=== PATIENT | male | born 1960 | race Caucasian/White ===

== ENCOUNTER → 2018-08-22 | Outpatient (CLI) | payer BC, OTHER | END | disposition home or self-care (01) | LOC: LABPAT 12:23 | PROVIDERS: ATTEND Orthopaedic Surgery | DX: Z01.812 Encounter for preprocedural laboratory examination (principal) | CPT/HCPCS: 87070 ==

== ENCOUNTER 2018-09-08 08:26 | Inpatient (IN) | payer BC ==
--- NOTE | 2018-09-07 16:59 | HP ---
HISTORY AND PHYSICAL Surgery is 09/08/2018. El Coleman is a 57-year-old patient seen with symptomatic left knee osteoarthritis. After having treatment options discussed, he elected to proceed left total knee arthroplasty. Consent regarding the procedure was obtained. Medical clearance was provided by Dr. Nba Vernon. PAST MEDICAL HISTORY: Yys-kobfmvq-xdqoqlskv diabetes, hypertension. PAST SURGICAL HISTORY: Knee arthroscopy. DAILY MEDICATIONS: Amlodipine, glucosamine, tramadol. ALLERGIES: MOTRIN AND DILAUDID. SOCIAL HISTORY: Denies tobacco use. PHYSICAL EXAMINATION: Physical evaluation of the left knee: His range of motion is -3/4 to 115 degrees. There is mild effusion. Tenderness medial joint line. Positive medial Shankar's. Crepitus medial patellofemoral compartments with range of motion. Ligaments stable. Hip rotation without pain. Distal neurovascular exam intact. RADIOGRAPHS: Radiographs of the left knee revealed moderate to severe medial compartment osteoarthritis and moderate patellofemoral compartment osteoarthritis. IMPRESSION: 1. Left knee osteoarthritis. 2. Hypertension. 3. Yib-nppzaio-fqkklylqw diabetes. 4. History of deep venous thrombosis. PLAN: Left total knee arthroplasty. MMODL / IJN: [id number] /
[~2018-09-08 08:26] MED LIST: ACETAMINOPHEN TAB 500 MG TAB PO ONE; DEXAMETHASONE SOD PHOSPHATE 10 MG/ML 1 ML VIAL IV ONE; LIDOCAINE 1% 20 ML VIAL (10MG/ML) FOR IV START INTRADERMA PRN; MELOXICAM 7.5 MG TAB PO ONE; MIDAZOLAM (PF) 2 MG/2 ML VIAL IV PRN; ONDANSETRON 4 MG/2 ML VIAL IVP ONE; TRANEXAMIC ACID 1,000 MG in SODIUM CHLORIDE 0.9% 100 ML IVPB ONE; ceFAZolin IN SWFI 2 GM/20 ML SYRINGE IVP ONE
[2018-09-08 09:10] LABS: Glucose,Whole Blood 151 mg/dL (75-99)
[2018-09-08] MEDS ORDERED: MIDAZOLAM 2 MG/2 ML VIAL IV ONE (09:15)
[2018-09-08] MEDS: LACTATED RINGERS 1,000 ML IV SCH ×4 (09:29→22:34)
[2018-09-08] MEDS ORDERED: ROPIVACAINE 1,100 MG, SODIUM CHLORIDE 0.9% 500 ML 330 ML MISCELLANE PRN ×2 (09:56)
[2018-09-08] MEDS ORDERED: ROPIVACAINE 246.25 MG, EPINEPHrine 0.5 MG, KETOROLAC 30 MG, cloNIDine HCL/PF 80 MCG, WA... MISCELLANE ONE ×5 (09:57)
--- NOTE | 2018-09-08 09:58 | P.ONQ ---
Anesthesiology Proc Note - PNB - Peripheral Nerve Block Performed Left Adductor Canal Infusion Time Out Performed: Yes Procedure Start Time: : Procedure Stop Time: : Indication: Acute Post-Operative Pain, Requested by physician Sedation Type: Sedate with meaningful contact maintained Preparation: Sterile Dressing Position: Supine Catheter: Indwelling Needle Types: On-Q Needle Size: 100mm (4") Needle Gauge: 21 Technique: Ultrasound Injectate: 0.5% Ropivacaine (see comment for volume) (ropi .5% 20cc) Blood Aspirated: No Pain Paresthesia on Injection Noted: No Resistance on Injection: Normal Events: Uneventful and Well Tolerated
[2018-09-08] MEDS ORDERED: ceFAZolin 3,000 MG in SODIUM CHLORIDE 0.9% IRRIGATIO 3,000 ML IRRIGATION ONE (10:18)
[2018-09-08] MEDS ORDERED: LACTATED RINGERS 1,000 ML IV ONE ×2 (11:10→13:05)
[2018-09-08] MEDS ORDERED: NALOXONE 0.4 MG/ML 1 ML VIAL IV PRN (11:56)
[2018-09-08] MEDS ORDERED: HYDROmorphone 0.5 MG/0.5 ML SYRINGE IVP PRN (11:56)
[2018-09-08] MEDS ORDERED: HYDROcodone/APAP 5-325MG 1 EACH TAB PO PRN (11:56)
[2018-09-08] MEDS ORDERED: traMADol 50 MG TAB PO PRN (11:56)
--- NOTE | 2018-09-08 11:56 | P.OP ---
Date of Procedure: 09/08/18 Preoperative Diagnosis: Left knee osteoarthritis Postoperative Diagnosis: Left knee osteoarthritis Procedure(s) Performed: Left total knee arthroplasty Implants: 1. Microport evolution size 6 cemented femur 2. Microport evolution size 6 cemented tibial baseplate 3. Microport evolution size 6 MP/CS 12 mm polyethylene tibial insert 4. Microport advanced 38 mm all polyethylene cemented patella Anesthesia: GETA, regional (Adductor canal catheter), local Surgeon: Geoffrey Pineda Doctor Of Veterinary Medicine #1: Asael Brush Estimated Blood Loss (ml): 50 Pathology: other (Bone) Condition: stable Disposition: PACU Indications for Procedure: 57-year-old patient seen with setback left knee osteoarthritis. After treatment options were discussed, he elected to proceed with total knee arthroplasty Operative Findings: See description of procedure Description of Procedure: Patient was taken to the operative suite after having an adductor canal catheter placed by the department of anesthesia. Patient underwent a general anesthetic by the department of anesthesia. Patient was given preoperative IV intake antibiotics and TXA. A well-padded tourniquet was placed about the left lower extremity. The lower extremity was then prepped and draped in the normal sterile orthopedic fashion. The extremity was elevated, a tourniquet was insufflated to 300. A standard anterior incision was made sharply through skin. Dissection was taken down through the subcutaneous soft tissues down to the extensor mechanism. A medial arthrotomy was performed, patella was everted and knee was flexed. There was advanced osteoarthritis noted. I introduced my distal intramedullary femoral drill. I then introduced the distal femoral cutting jig. Hardeep QUINTANA secured the cutting jig with 2 pins. I held retractors in position while Hardeep QUINTANA performed the distal femoral resection through the guide area we now removed her distal femoral cutting guide. We now placed our 4-in-1 femoral cutting block and positioned and it was secured with 2 pins by Hardeep QUINTANA while I held the block in position. The distal femoral finishing was now completed. A proximal tibial cutting guide was positioned. I held the guide in the appropriate position with both hands well Hardeep QUINTANA inserted stabilizing pins into the guide. Proximal tibial cut was made. We now placed a trial femoral component into position, along with an appropriate size tibial tray and insert. We now took the knee through range of motion and had full extension good flexion and good overall soft tissue balance noted. The patella was everted and stabilized with 2 towel clips held by Hardeep QUINTANA while I performed a flush with patellar quad tendon utilizing a fresh sawblade. We templated the patella, appropriate drill holes were made. An appropriate trial patella was positioned, knee was taken through full range of motion with the patella tracking very nicely. The trial patella was removed. Drill holes were made through the femoral component. All trial components were removed after marking off the appropriate rotation of the tibia. Retractors were now positioned along the proximal tibia. An appropriate keel punch was made with the appropriate size tibial guide by myself on Hardeep QUINTANA assisted by holding retractors. At this point appropriate size implants were chosen and opened. The joint was irrigated copiously with pulse lavage mechanical irrigation. The posterior capsule was infiltrated with local analgesic. The wound was irrigated with pulse lavage mechanical irrigation. We mixed antibiotic methylmethacrylate. We placed the knee into flexion. We placed multiple retractors assisted by Hardeep QUINTANA to expose the proximal tibia. Once the methyl methacrylate was ready, the tibial component was cemented into place removing any excess methylmethacrylate form by both myself and Hardeep QUINTANA. The femoral component was cemented into place removing the removing any excess methylmethacrylate performed by both myself and Hardeep QUINTANA. We then inserted the appropriate size polyethylene tibial insert. We made sure that it was locked into position. We took the knee into full extension, and then back in a flexion making sure we had removed any excess methylmethacrylate. The patellar component was then cemented down and secured with clamp. Excess methylmethacrylate removed. We kept the knee in full extension, patellar clamp in position until methylmethacrylate had hardened. Once it had hardened the patellar clamp was removed. The knee was taken through full range of motion. The patella tracked nicely. There was good soft tissue balancing. The tourniquet was now released. Additional hemostasis was achieved via electrocautery. A second gram of TXA was given. The wound again was irrigated with pulse lavage mechanical irrigation. The superficial soft tissues were infiltrated local analgesic. The extensor mechanism was repaired with Vicryl. We checked the repair with range of motion and it was stable. The subcutaneous soft tissues were repaired with Vicryl in layers. The skin was approximated with pernio/Dermabond. Sterile dressings were applied followed by loose web roll and Santy bandage. The patient was transferred to a bed, and taken to recovery in stable and satisfactory condition. Hardeep QUINTANA assisted with this complex procedure.
[2018-09-08] MEDS: fentaNYL (PF) 50 MCG/ML 2 ML AMP IV PRN ×2 (12:53→14:17)
[2018-09-08] MEDS ORDERED: diphenhydrAMINE 50 MG/ML 1 ML VIAL IVP ONE ×2 (12:58→16:55)
--- NOTE | 2018-09-08 13:03 | XR ---
EXAMINATION TYPE: XR knee limited LT DATE OF EXAM: 09/08/2018 COMPARISON: NONE HISTORY: 57-year-old male evaluation for postoperative abnormality and alignment TECHNIQUE: 2 views FINDINGS: Images show placement of left total knee arthroplasty. 2 distal femoral and proximal tibial component s of the prosthesis are well seated without periprosthetic fracture. Alignment grossly anatomic. Ante rior soft tissue swelling with soft tissue air as well as intra-articular air and joint fluid compati ble with recent operation. IMPRESSION: Uncomplicated postoperative appearance left total knee arthroplasty.
[2018-09-08 13:05] LABS: Glucose,Whole Blood 191 mg/dL (75-99)
[2018-09-08] MEDS: HYDROmorphone 1 MG/ML 1 ML SYRINGE IVP ONE ×3 (15:04→16:06)
[2018-09-08] MEDS ORDERED: ONDANSETRON 4 MG/2 ML VIAL IVP ONE (15:13)
[2018-09-08] MEDS ORDERED: HYDROmorphone 1 MG/ML 1 ML SYRINGE IVP ONE (16:24)
[2018-09-08 18:21] VITALS: BMI 34.9
[2018-09-08] MEDS: HYDROcodone/APAP 5-325MG 1 EACH TAB PO PRN (18:26)
[2018-09-08] MEDS: ceFAZolin IN SWFI 2 GM/20 ML SYRINGE IVP SCH (18:26)
[2018-09-08 19:56] LABS: Glucose,Whole Blood 225 mg/dL (75-99)
[2018-09-08] MEDS ORDERED: INSULIN ASPART (NovoLOG) 100 UNIT/ML VIAL SQ ONE (22:02)
[2018-09-08] MEDS: SENNOSIDES-DOCUSATE SODIUM 1 EACH TAB PO SCH (22:14)
[2018-09-08] MEDS: HYDROmorphone 0.5 MG/0.5 ML SYRINGE IVP PRN (22:14)
[2018-09-09] MEDS: ceFAZolin IN SWFI 2 GM/20 ML SYRINGE IVP SCH (00:08)
[2018-09-09] MEDS: HYDROcodone/APAP 5-325MG 1 EACH TAB PO PRN ×2 (02:29→07:55)
[2018-09-09] MEDS: HYDROmorphone 0.5 MG/0.5 ML SYRINGE IVP PRN (04:54)
[2018-09-09] MEDS: ENOXAPARIN 30 MG/0.3 ML SYRINGE SQ SCH ×2 (05:29→17:12)
[2018-09-09 06:57] LABS: Glucose,Whole Blood 199 mg/dL (75-99)
--- NOTE | 2018-09-09 07:24 | CONS ---
CONSULTATION REASON FOR CONSULTATION: Advice regarding diabetes and other medical issues requested by Dr. Pineda. HISTORY OF PRESENT ILLNESS: This is a 57-year-old gentleman with a past medical history of hypertension, diabetes, DJD, history of pneumonia, being followed by Dr. Colt Crum in the outpatient setting underwent left total knee joint arthroplasty by Dr. Pineda. There is no history of any chest pain. No history of palpitations. No history of headache, loss of consciousness, nausea, vomiting, diarrhea, fevers or rigors. The patient is complaining of some left knee pain. PAST MEDICAL HISTORY: Diabetes mellitus type 2, hypertension, hyperlipidemia, DJD, history pneumonia, history of pulmonary embolism. MEDICATIONS: Home medications: 1. Ultram 100 mg q.6 p.r.n. 2. Metformin 1000 mg p.o. b.i.d. 3. Glyburide 5 mg b.i.d. 4. Norvasc 10 mg daily. 5. Zocor 40 mg daily. 6. Multivitamins one p.o. daily. 7. Invokana 100 mg daily. 8. Aspirin 81 mg daily. ALLERGIES: HYDROMORPHONE. FAMILY HISTORY: History of cancer, COPD. SOCIAL HISTORY: No history of smoking. No of alcohol intake. REVIEW OF SYSTEMS: ENT: No diminished hearing or diminished vision. CARDIOVASCULAR SYSTEM: No angina or palpitations. RESPIRATORY SYSTEM: As mentioned earlier. GI: No nausea. : No dysuria. NERVOUS SYSTEM: No numbness or weakness. MUSCULOSKELETAL: As mentioned earlier. HEMATOLOGY: No history of anemia. ENDOCRINE: Diabetes mellitus. CONSTITUTIONAL: As mentioned earlier. DERMATOLOGY: Negative. RHEUMATOLOGY: Negative. PSYCHIATRY: As mentioned earlier. PHYSICAL EXAMINATION: The patient is alert and oriented x3. Pulse 94, blood pressure 127/69, respiration 16, temperature 97.6, pulse ox 96% on room air. HEENT: Conjunctivae normal. Oral mucosa moist. Neck is no jugular venous distention. No carotid bruit. No lymph node enlargement. CARDIOVASCULAR: S1, S2 muffled. No S3, no S4. RESPIRATORY: Breath sounds diminished at the bases. A few rhonchi. No crackles. ABDOMEN: Soft, nontender. No mass palpable. LEGS: Status post knee arthroplasty. NERVOUS SYSTEM: Higher functions as mentioned earlier. Moves all 4 limbs. No focal motor deficits. LYMPHATICS: No lymphadenopathy of the neck, axillae or groin. SKIN: No ulcer, rash or bleeding. JOINTS: No active deforming arthropathy. LABS: Accu-Cheks 151, 191, 225. ASSESSMENT: 1. Status post left total knee joint arthroplasty. 2. Diabetes mellitus type 2. 3. Hypertension. 4. Hyperlipidemia. 5. Degenerative joint disease. 6. History of pneumonia. 7. History of pulmonary embolism. 8. History of degenerative joint disease. RECOMMENDATIONS AND DISCUSSION: In this 57-year-old gentleman who presented with multiple medical issues at this time I recommend to continue current medications, continues with monitoring and symptomatic treatment. As this time I recommend DVT prophylaxis. Resume the home medications. The patient is on Lovenox 30 mg subcu b.i.d. I would also recommend extended prophylaxis as well. Monitor blood sugars closely. Resume the home medications. Incentive spirometry. Follow the patient closely. The patient may be asked to follow up with primary physician closely. Thank you, Dr. Pineda, for letting us participate in the care of this patient. MMODL / IJN: [id number] /
[2018-09-09] MEDS: amLODIPine 10 MG TAB PO SCH (07:55)
[2018-09-09] MEDS: MULTIVITAMINS, THERA 1 EACH TAB PO SCH (07:55)
[2018-09-09] MEDS: MELOXICAM 7.5 MG TAB PO SCH (07:55)
[2018-09-09] MEDS: glipiZIDE 10 MG TAB PO SCH ×2 (07:55→17:12)
[2018-09-09] MEDS: ATORVASTATIN 20 MG TAB PO SCH (07:55)
[2018-09-09] MEDS: metFORMIN 500 MG TAB PO SCH ×2 (07:55→17:12)
[2018-09-09] MEDS: INSULIN ASPART (NovoLOG) 100 UNIT/ML VIAL SQ SCH ×4 (07:56→22:14)
[2018-09-09] MEDS: LACTATED RINGERS 1,000 ML IV SCH ×3 (08:01→18:07)
[2018-09-09 08:11] LABS: Basophils % (A) 0 %; Eosinophils # (A) 0.1 k/uL (0-0.7); Eosinophils % (A) 1 %; HCT 41.7 % (39.0-53.0); HGB 13.8 gm/dL (13.0-17.5); Lymphocytes # (A) 1.2 k/uL (1.0-4.8); Lymphocytes % (A) 11 %; MCH 29.9 pg (25.0-35.0); MCHC 33.1 g/dL (31.0-37.0); MCV 90.5 fL (80.0-100.0); Mean Platelet Volume 6.1; Monocytes # (A) 0.7 k/uL (0-1.0); Monocytes % (A) 6 %; Neutrophils # (A) 8.9 k/uL (1.3-7.7); Neutrophils % (A) 81 %; Platelet Count 273 k/uL (150-450)
[2018-09-09] MEDS: Canagliflozin [Invokana] 100 MG PO SCH (09:38)
[2018-09-09] MEDS: HYDROmorphone 1 MG/ML 1 ML SYRINGE IVP PRN ×3 (10:10→21:10)
--- NOTE | 2018-09-09 10:54 | P.PN ---
Progress Note - Text Progress Note Date: 09/09/18 The patient is status post[ left] adductor canal catheter placement. The catheter was placed for postoperative pain control, status post total left knee arthroplasty. Ropivacaine 0.2% is infusing at 5 mLs per hour. The patient has no complaints of left lower extremity numbness or weakness. Patient's VAS score is 4 -10. Assessment: Patient's adductor canal catheter is in place and working appropriately. Plan: continue infusion and adjust it as needed.
[2018-09-09 12:12] LABS: Glucose,Whole Blood 117 mg/dL (75-99)
[2018-09-09] MEDS: DIAZEPAM 5 MG TAB PO PRN ×2 (12:15→22:08)
[2018-09-09] MEDS: HYDROcodone/APAP 7.5-325MG 1 EACH TAB PO PRN (13:07)
--- NOTE | 2018-09-09 13:18 | P.PN ---
Subjective Progress Note Date: 09/09/18 Principal diagnosis: Status post left total knee arthroplasty Patient evaluated at bedside, his family present with him. Patient notes severe pain involving the left knee. I did increase his oral pain medication recently, I also added Valium. We will reassess later today. Denies any chest pain or shortness of breath. Objective - Vital Signs Vital signs: Vital Signs Temp 98.3 F 09/09/18 07:39 Pulse 90 09/09/18 07:39 Resp 16 09/09/18 07:39 BP 164/81 09/09/18 07:39 Pulse Ox 94 L 09/09/18 07:39 Intake & Output 09/08/18 09/09/18 09/09/18 18:59 06:59 18:59 Intake Total 2000 1100 Output Total 50 500 Balance 1950 - 1100 Intake: IV 2000 Intake, IV Titration 800 Amount Lactated Ringers 1,000 ml 800 @ 100 mls/hr IV .Q10H JOSE Rx#:[id number] Other 300 Output: Urine 500 Estimated Blood Loss 50 Other: # Voids 3 - Exam Left lower extremity: Incision is clean, dry, and intact. The exofin fusion tape is in good condition. There is minimal soft tissue swelling and ecchymosis surrounding the medial and lateral aspects of the incision. Calf is soft, no tenderness with palpation. Plantar flexion, dorsiflexion, EHL, FHL are intact. Sensory exam to light touch throughout the extremity is intact, dorsal pedis pulses 2+. - Labs CBC & Chem 7: 09/09/18 07:13 Labs: Abnormal Lab Results - Last 24 Hours (Table) 09/08/18 09/09/18 09/09/18 Range/Units 19:55 06:55 07:13 WBC 11.0 H (3.8-10.6) k/uL Neutrophils # 8.9 H (1.3-7.7) k/uL POC Glucose (mg/dL) 225 H 199 H (75-99) mg/dL 09/09/18 Range/Units 12:10 WBC (3.8-10.6) k/uL Neutrophils # (1.3-7.7) k/uL POC Glucose (mg/dL) 117 H (75-99) mg/dL Assessment and Plan Plan: Assessment: Postop day 1 status post left total knee arthroplasty Plan: Pain control, did adjust oral medications GI and DVT prophylaxis, continue subcu medication. We'll discharge home on Eliquis 2.5mg Wound care instructions discussed Encourage incentive spirometer Encourage work with physical therapy and use of CPM Medical recommendations Discharge planning: Hopeful discharged home in the next day or 2 Time with Patient: Less than 30
[2018-09-09 13:45] LABS: Hemoglobin A1C 8.6 % (4.0-6.0)
[2018-09-09 17:06] LABS: Glucose,Whole Blood 146 mg/dL (75-99)
--- NOTE | 2018-09-09 18:12 | PN ---
PROGRESS NOTE DATE OF SERVICE: 09/09/2018 This 57-year-old gentleman who was admitted after right total knee arthroplasty is being closely monitored. No chest pain. No palpitations. No fever. On exam, alert and oriented x3. The pulse is 90, blood pressure 164/81, respirations 16, temperature 98.3, pulse ox 94% on room air. HEENT: Conjunctivae normal. NECK: No jugular venous distention. CARDIOVASCULAR SYSTEM: S1, S2 muffled. RESPIRATORY SYSTEM: Breath sounds diminished at the bases. No rhonchi. No crackles. ABDOMEN: Soft. LEGS: Status post surgery. NERVOUS SYSTEM: No focal deficit. LABS: WBC 11 and hemoglobin A1c is 8.6. Accu-Cheks are noted. ASSESSMENT: 1. Status post left total knee arthroplasty. 2. Diabetes mellitus, type 2. 3. Hypertension. 4. Hyperlipidemia. 5. Hemoglobin A1c is 8.6. 6. Degenerative joint disease. 7. History of pneumonia. 8. History of pulmonary embolism. 9. History of degenerative joint disease. RECOMMENDATIONS AND DISCUSSION: I recommend to continue current medications, continue with symptomatic treatment. I would also recommend UA with micro to complete the workup. Otherwise, I would recommend continuing with DVT prophylaxis to complete the home course. Further recommendations to follow. MMODL / IJN: [id number] /
[2018-09-09] MEDS ORDERED: ONDANSETRON 4 MG/2 ML VIAL IVP STA (18:17)
[2018-09-09 18:33] LABS: Appearance,Urine Clear (Clear); Bilirubin,Urine Negative (Negative); Blood,Urine Negative (Negative); Color,Urine Light Yellow; Glucose,Urine (UA) 4+ (Negative); Ketones,Urine 1+ (Negative); Leukocyte Esterase,Urine Negative (Negative); Nitrite,Urine Negative (Negative); Protein,Urine Trace (Negative); Specific Gravity,Urine 1.012 (1.001-1.035); Urobilinogen,Urine <2.0 mg/dL (<2.0)
[2018-09-09 19:58] LABS: Glucose,Whole Blood 141 mg/dL (75-99)
[2018-09-09] MEDS: SENNOSIDES-DOCUSATE SODIUM 1 EACH TAB PO SCH (22:08)
[2018-09-10] MEDS: HYDROcodone/APAP 7.5-325MG 1 EACH TAB PO PRN ×3 (01:01→22:52)
[2018-09-10] MEDS: HYDROmorphone 1 MG/ML 1 ML SYRINGE IVP PRN ×3 (03:39→10:41)
[2018-09-10] MEDS: LACTATED RINGERS 1,000 ML IV SCH ×3 (04:19→12:12)
[2018-09-10] MEDS: ENOXAPARIN 30 MG/0.3 ML SYRINGE SQ SCH ×2 (05:15→17:47)
[2018-09-10] MEDS: DIAZEPAM 5 MG TAB PO PRN ×3 (05:17→20:24)
[2018-09-10 07:02] LABS: Glucose,Whole Blood 101 mg/dL (75-99)
[2018-09-10] MEDS: INSULIN ASPART (NovoLOG) 100 UNIT/ML VIAL SQ SCH ×4 (07:06→22:52)
[2018-09-10] MEDS: glipiZIDE 10 MG TAB PO SCH ×2 (07:52→17:46)
[2018-09-10] MEDS: metFORMIN 500 MG TAB PO SCH ×2 (07:52→17:46)
[2018-09-10] MEDS: MULTIVITAMINS, THERA 1 EACH TAB PO SCH (09:42)
[2018-09-10] MEDS: MELOXICAM 7.5 MG TAB PO SCH (09:43)
[2018-09-10] MEDS: Canagliflozin [Invokana] 100 MG PO SCH (09:43)
[2018-09-10] MEDS: amLODIPine 10 MG TAB PO SCH (09:48)
[2018-09-10] MEDS: ATORVASTATIN 20 MG TAB PO SCH (09:48)
[2018-09-10 11:44] LABS: Glucose,Whole Blood 177 mg/dL (75-99)
--- NOTE | 2018-09-10 14:18 | P.PN ---
Subjective Progress Note Date: 09/10/18 Principal diagnosis: Status post left total knee arthroplasty Patient evaluated at bedside, his family present with him. Pain control slightly better than yesterday, I will add a muscle relaxant. Denies any chest pain or shortness of breath. Objective - Vital Signs Vital signs: Vital Signs Temp 98.1 F 09/09/18 23:00 Pulse 117 H 09/09/18 23:00 Resp 16 09/10/18 08:15 BP 162/91 09/09/18 23:00 Pulse Ox 94 L 09/09/18 23:00 Intake & Output 09/09/18 09/10/18 09/10/18 18:59 06:59 18:59 Intake Total 2558 560 Output Total 800 Balance 2558 -240 Intake: Intake, IV Titration 1600 Amount Lactated Ringers 1,000 ml 1600 @ 100 mls/hr IV .Q10H JOSE Rx#:[id number] Oral 458 560 Other 500 Output: Urine 800 Other: # Voids 3 - Exam Left lower extremity: Incision is clean, dry, and intact. The exofin fusion tape is in good condition. There is minimal soft tissue swelling and ecchymosis surrounding the medial and lateral aspects of the incision. Calf is soft, no tenderness with palpation. Plantar flexion, dorsiflexion, EHL, FHL are intact. Sensory exam to light touch throughout the extremity is intact, dorsal pedis pulses 2+. - Labs CBC & Chem 7: 09/09/18 07:13 Labs: Abnormal Lab Results - Last 24 Hours (Table) 09/09/18 09/09/18 09/09/18 Range/Units 17:05 18:15 19:56 POC Glucose (mg/dL) 146 H 141 H (75-99) mg/dL Urine Protein Trace H (Negative) Urine Glucose (UA) 4+ H (Negative) Urine Ketones 1+ H (Negative) 09/10/18 09/10/18 Range/Units 07:01 11:33 POC Glucose (mg/dL) 101 H 177 H (75-99) mg/dL Urine Protein (Negative) Urine Glucose (UA) (Negative) Urine Ketones (Negative) Assessment and Plan Plan: Assessment: Postop day #2 status post left total knee arthroplasty Plan: Pain control, continue current medication GI and DVT prophylaxis, continue subcu medication. We'll discharge home on Eliquis 2.5mg Wound care instructions discussed Encourage incentive spirometer Encourage work with physical therapy and use of CPM Medical recommendations Discharge planning: Hopeful discharged home tomorrow Time with Patient: Less than 30
[2018-09-10] MEDS: CYCLOBENZAPRINE 5 MG TAB PO PRN ×2 (14:45→22:52)
[2018-09-10] MEDS: HYDROcodone/APAP 5-325MG 1 EACH TAB PO PRN (17:46)
--- NOTE | 2018-09-10 18:07 | PN ---
PROGRESS NOTE DATE OF SERVICE: 09/10/2018 This 57-year-old gentleman who was admitted with left total knee arthroplasty is being closely monitored at this time. The patient is complaining of some pain. Muscle relaxant was ordered by Orthopedic Surgery. No chest pain. No palpitations. No fever. On exam, alert and oriented x3. Pulse is 125, blood pressure 151/90, respirations 16, temperature 97.7, pulse ox 93% on room air. HEENT: Conjunctivae normal. NECK: No jugular venous distention. CARDIOVASCULAR SYSTEM: S1, S2 muffled. RESPIRATORY SYSTEM: Breath sounds diminished at the bases. A few scattered rhonchi. No crackles. ABDOMEN: Soft. LEGS: Status post surgery. NERVOUS SYSTEM: No focal deficit. LABS: Accu-Cheks 141, 101, 177. ASSESSMENT: 1. Status post left total knee arthroplasty. 2. Diabetes mellitus, type 2. 3. Hypertension. 4. Hyperlipidemia. 5. Hemoglobin A1c 8.6. 6. Degenerative joint disease. 7. History of pneumonia. 8. History of pulmonary embolus. 9. History of degenerative joint disease. RECOMMENDATIONS AND DISCUSSION: I recommend to continue current medications, continue with symptomatic treatment. Monitor blood sugars closely; they appear to be fairly under control at this time. I would also recommend close followup in the outpatient setting. The patient is also on Lovenox. Recommend to continue with anti-thrombotic prophylaxis as an outpatient because the patient has a history of previous thromboembolic disease. Guarded prognosis. Further recommendations to follow. Closely follow with Orthopedic Surgery. MMODL / IJN: [id number] /
[2018-09-10 18:12] LABS: Glucose,Whole Blood 165 mg/dL (75-99)
[2018-09-10] MEDS: SENNOSIDES-DOCUSATE SODIUM 1 EACH TAB PO SCH (20:24)
[2018-09-10 22:25] LABS: Glucose,Whole Blood 146 mg/dL (75-99)
[2018-09-11] MEDS: HYDROcodone/APAP 7.5-325MG 1 EACH TAB PO PRN ×3 (04:44→17:10)
[2018-09-11] MEDS: ENOXAPARIN 30 MG/0.3 ML SYRINGE SQ SCH ×2 (05:47→17:09)
[2018-09-11 07:16] LABS: Glucose,Whole Blood 112 mg/dL (75-99)
[2018-09-11] MEDS: LACTATED RINGERS 1,000 ML IV SCH ×3 (07:22→07:36)
[2018-09-11] MEDS: INSULIN ASPART (NovoLOG) 100 UNIT/ML VIAL SQ SCH ×3 (07:23→17:17)
[2018-09-11] MEDS: MELOXICAM 7.5 MG TAB PO SCH (07:31)
[2018-09-11] MEDS: CYCLOBENZAPRINE 5 MG TAB PO PRN ×2 (07:31→15:01)
[2018-09-11] MEDS: amLODIPine 10 MG TAB PO SCH (07:31)
[2018-09-11] MEDS: ATORVASTATIN 20 MG TAB PO SCH (07:31)
[2018-09-11] MEDS: DIAZEPAM 5 MG TAB PO PRN ×2 (07:31→15:01)
[2018-09-11] MEDS: glipiZIDE 10 MG TAB PO SCH ×2 (07:31→17:10)
[2018-09-11] MEDS: MULTIVITAMINS, THERA 1 EACH TAB PO SCH (07:32)
[2018-09-11] MEDS: metFORMIN 500 MG TAB PO SCH ×2 (07:35→17:10)
[2018-09-11] MEDS: Canagliflozin [Invokana] 100 MG PO SCH (07:35)
[2018-09-11 07:48] LABS: Basophils % (A) 0 %; Eosinophils # (A) 0.1 k/uL (0-0.7); Eosinophils % (A) 1 %; HCT 40.9 % (39.0-53.0); HGB 13.2 gm/dL (13.0-17.5); Lymphocytes % (A) 11 %; MCH 29.4 pg (25.0-35.0); MCHC 32.4 g/dL (31.0-37.0); MCV 90.6 fL (80.0-100.0); Mean Platelet Volume 6.3; Monocytes # (A) 0.7 k/uL (0-1.0); Monocytes % (A) 7 %; Neutrophils # (A) 7.2 k/uL (1.3-7.7); Neutrophils % (A) 80 %; Platelet Count 261 k/uL (150-450); RBC 4.51 m/uL (4.30-5.90); WBC 9.1 k/uL (3.8-10.6)
[2018-09-11 11:42] LABS: Glucose,Whole Blood 86 mg/dL (75-99)
--- NOTE | 2018-09-11 13:15 | P.PN ---
Subjective Progress Note Date: 09/11/18 Principal diagnosis: Status post left total knee arthroplasty Patient evaluated at bedside, his family present with him. Pain control slightly better than yesterday. Denies any chest pain or shortness of breath. Objective - Vital Signs Vital signs: Vital Signs Temp 98.1 F 09/11/18 07:25 Pulse 104 H 09/11/18 07:25 Resp 12 09/11/18 07:25 BP 167/85 09/11/18 07:25 Pulse Ox 94 L 09/11/18 07:25 Intake & Output 09/10/18 09/11/18 09/11/18 18:59 06:59 18:59 Intake Total 850 350 480 Balance 850 350 480 Intake: Oral 850 350 480 Other: Voiding Method Toilet Toilet Urinal # Voids 2 - Exam Left lower extremity: Incision is clean, dry, and intact. The exofin fusion tape is in good condition. There is minimal soft tissue swelling and ecchymosis surrounding the medial and lateral aspects of the incision. Calf is soft, no tenderness with palpation. Plantar flexion, dorsiflexion, EHL, FHL are intact. Sensory exam to light touch throughout the extremity is intact, dorsal pedis pulses 2+. - Labs CBC & Chem 7: 09/11/18 06:57 Labs: Abnormal Lab Results - Last 24 Hours (Table) 09/10/18 09/10/18 09/11/18 Range/Units 18:11 22:24 07:13 POC Glucose (mg/dL) 165 H 146 H 112 H (75-99) mg/dL Assessment and Plan Plan: Assessment: Postop day #3 status post left total knee arthroplasty Plan: Pain control, continue current medication GI and DVT prophylaxis, continue subcu medication. We'll discharge home on Eliquis 2.5mg Wound care instructions discussed Encourage incentive spirometer Encourage work with physical therapy and use of CPM Medical recommendations Discharge planning: Discharged home today Time with Patient: Less than 30
--- NOTE | 2018-09-11 13:22 | P.DS ---
Providers Date of admission: 09/08/18 08:26 Expected date of discharge: 09/11/18 Attending physician: Geoffrey Pineda Consults: 09/08/18 11:56 Consult Physician Routine Consulting Provider: Colt Crum Consult Reason/Comments: Medical management Do you want consulting provider notified?: Yes Primary care physician: Colt Crum Hospital Course: Date of admission: 09/08/2018 Date of discharge: 09/11/2018 Admission diagnosis: Status post left total knee arthroplasty Discharge diagnosis: Same Attending physician: Dr. Pineda Surgical procedures: Left total knee arthroplasty Brief history: Patient is a 57-year-old male with a history of progressive primary left knee osteoarthritis. At this point patient has failed conservative treatment measures and has opted to proceed with a elective left total knee arthroplasty. Hospital course: Details of patient's surgery can be found in operative report. Patient tolerated the procedure well and was subsequently transported to orthopedic floor. Patient's orthopeidc and medical care was provided daily. Patient had daily laboratory tests performed for evaluation of overall blood counts. Patient had daily physical therapy to include strengthening range of motion as well as education with walker ambulation. Patient had daily CPM usage as part of their physical therapy program. Patient was treated with Lovenox for their postoperative DVT prophylaxis during their inpatient stay. Patient was noted to have a relatively uneventful postoperative course. Patient reported satisfactory pain control with oral pain medications by postoperative day 0. Patient showed satisfactory progress with physical therapy. Patient moved steadily through the program and had no difficulty meeting the goals by postoperative day 3. Given patient's otherwise satisfactory course and having met physical therapy goals, plan is to discharge patient home on postoperative day 3. Discharge condition/disposition: Patient will be discharged home in stable condition. Discharge medications: Instructions are given on resumption of patient's normal daily medications per primary care recommendation, in addition patient will be prescribed [place] 7.5 mg/25 mg, tramadol 50 mg, Flexeril 10mg, Valium 5mg, Colace 100mg. Discharge instructions: 1. Wound care and infection precautions, keep incision dry and covered while showering, no lotions, creams, moisturizers. No soaking, tubs, pools, hottubs. Do not scrub over the incision. 2. Weight-bear as tolerated with walker / cane until follow-up. 3. Ice and elevate when necessary. Do not exceed 20 minutes per hour with ice pack. 4. Utilize compression sleeve until seen at first follow up appointment. 5. Visiting nursing care. 6. Home physical therapy including home CPM. 7. Pain meds and anticoagulants per prescription. 8. Pain medication has potential to cause constipation. Increase oral fluid and fiber intake. Contact primary care provider if you have not had a bowel movement within 48 hours after discharge 9. No anti-inflammatory medication until discussed at first post operative visit, this including Motrin, Aleve, Mobic, Diclofenac,. 10. Follow up in office at 2 weeks postop with Hardeep Brush PA-C 11. Follow up with your primary care doctor 7-10 days after discharge. 12. Contact [facility] with any questions, . Procedures: Left total knee arthroplasty Patient Condition at Discharge: Good Plan - Discharge Summary Discharge Rx Participant: Yes New Discharge Prescriptions: New Apixaban [Eliquis] 2.5 mg PO BID #30 tab Cyclobenzaprine [Flexeril] 10 mg PO HS #30 tab Docusate [Colace] 100 mg PO DAILY #30 capsule HYDROcodone/APAP 7.5-325MG [[place] 7.5] 1 - 2 each PO Q6HR PRN #56 tab PRN Reason: Pain Diazepam [Valium] 5 mg PO BID #30 tab Continue metFORMIN HCL 1,000 mg PO BID amLODIPine BESYLATE [Norvasc] 10 mg PO DAILY glyBURIDE [Diabeta] 5 mg PO BID Multivitamin [Multivitamins Adult Gummies] 1 tab PO DAILY Aspirin 81 mg PO DAILY Simvastatin [Zocor] 40 mg PO DAILY Canagliflozin [Invokana] 100 mg PO DAILY Discharge Medication List amLODIPine BESYLATE [Norvasc] 10 mg PO DAILY 08/18/14 [History] metFORMIN HCL 1,000 mg PO BID 08/18/14 [History] glyBURIDE [Diabeta] 5 mg PO BID 06/07/15 [History] Aspirin 81 mg PO DAILY 09/02/18 [History] Canagliflozin [Invokana] 100 mg PO DAILY 09/02/18 [History] Multivitamin [Multivitamins Adult Gummies] 1 tab PO DAILY 09/02/18 [History] Simvastatin [Zocor] 40 mg PO DAILY 09/02/18 [History] Apixaban [Eliquis] 2.5 mg PO BID #30 tab 09/11/18 [Rx] Cyclobenzaprine [Flexeril] 10 mg PO HS #30 tab 09/11/18 [Rx] Diazepam [Valium] 5 mg PO BID #30 tab 09/11/18 [Rx] Docusate [Colace] 100 mg PO DAILY #30 capsule 09/11/18 [Rx] HYDROcodone/APAP 7.5-325MG [[place] 7.5] 1 - 2 each PO Q6HR PRN #56 tab 09/11/18 [ Rx] Follow up Appointment(s)/Referral(s): Colt Crum MD [Primary Care Provider] - 1 Week (Office will call with appointment time ) [facility], [NON-STAFF] - Asael Brush PAC [PHYSICIAN LINEMAN] - 09/24/18 3:40 pm Activity/Diet/Wound Care/Special Instructions: Orthopedic Discharge Instructions: 1. Wound care and infection precautions, keep incision dry and covered while showering, no lotions, creams, moisturizers. No soaking, pools, hot tubs. Do not scrub over incision. 2. Weight-bear as tolerated with walker / cane until follow-up. 3. Ice and elevate when necessary. Do not exceed 20 minutes per hour with ice pack. 4. Utilize compression sleeve until seen at first follow up appointment. 5. Pain meds and anticoagulants per prescription. 6. Pain medication has potential to cause constipation. Increase oral fluid and fiber intake. Contact primary care provider if you have not had a bowel movement within 48 hours after discharge. 7. No anti-inflammatory medication until discussed at first post operative visit, this including Motrin, Aleve, Mobic, Diclofenac. 8. Follow up in office at 2 weeks postop with Hardeep Brush PA-C 9. Follow up with your primary care doctor 7-10 days after discharge. 10. Contact [facility] with any questions, . Discharge Disposition: HOME WITH HOME HEALTH SERVICES
[2018-09-11 15:33] VITALS: BP 149/81; PULSE 109; RESP 17; TEMP 98.5
[2018-09-11 17:09] LABS: Glucose,Whole Blood 178 mg/dL (75-99)
--- NOTE | 2018-09-11 17:15 | PN ---
PROGRESS NOTE DATE OF SERVICE: 09/11/2018 This 57-year-old gentleman who was admitted with left total knee arthroplasty is improving significantly. No chest pain. No palpitations. No fever. On exam, alert and oriented x3. Pulse is 104, blood pressure 167/85, respiration 12, temperature 98.1, pulse ox 94% on room air. HEENT: Conjunctivae normal. NECK: No jugular venous distention. CARDIOVASCULAR SYSTEM: S1, S2 muffled. RESPIRATORY SYSTEM: Breath sounds diminished at the bases. No rhonchi. No crackles. ABDOMEN: Soft. NERVOUS SYSTEM: No focal deficit. EXAMINATION OF THE LEGS: Status post surgery. Labs are CBC within normal limits. ASSESSMENT: 1. Status post left total knee joint arthroplasty. 2. Diabetes mellitus, type 2. 3. Hypertension. 4. Hyperlipidemia. 5. Hemoglobin A1c of 8.6. 6. Degenerative joint disease. 7. History of pneumonia. 8. History of pulmonary embolism. 9. History of degenerative joint disease. RECOMMENDATIONS AND DISCUSSION: I recommend to continue current medications, continue with the monitoring, symptomatic treatment. Continue with the home medications. Closely follow with primary physician in the outpatient setting. DVT prophylaxis. Rest of the recommendations per Orthopedic Surgery. Further recommendations to follow. MMODL / IJN: [id number] /
== END 2018-09-11 16:00 | disposition home health service (06) | DRG 470 ==
LOC: 2ORMAIN 08:26 → 4SSUR 17:30
PROVIDERS: ADMIT Orthopaedic Surgery; ATTEND Orthopaedic Surgery
PROC: 0SRD0J9 Replacement of Left Knee Joint with Synthetic Substitute, Cemented, Open Approach (ICD-10-PCS; principal; 2018-09-08 10:10)
DX: M17.12 Unilateral primary osteoarthritis, left knee (principal); E11.65 Type 2 diabetes mellitus with hyperglycemia; E78.5 Hyperlipidemia, unspecified; I10 Essential (primary) hypertension; E66.9 Obesity, unspecified; Z68.36 Body mass index [BMI] 36.0-36.9, adult; Z79.82 Long term (current) use of aspirin; Z79.84 Long term (current) use of oral hypoglycemic drugs; Z79.899 Other long term (current) drug therapy; Z86.718 Personal history of other venous thrombosis and embolism; Z86.711 Personal history of pulmonary embolism; Z87.01 Personal history of pneumonia (recurrent); Z88.5 Allergy status to narcotic agent; Z82.5 Family history of asthma and other chronic lower respiratory diseases; Z80.9 Family history of malignant neoplasm, unspecified
CPT/HCPCS: 81003; 83036; 85025; 88300

== ENCOUNTER 2020-09-23 12:13 | Emergency (ER) | payer BC, OTHER ==
[2020-09-23 12:19] VITALS: TEMP 97.7
--- NOTE | 2020-09-23 13:01 | ED ---
General Adult HPI - General Chief complaint: Neuro Symptoms/Deficit Stated complaint: rt sided facial droop Time Seen by Provider: 09/23/20 12:21 Source: patient, RN notes reviewed Limitations: no limitations - History of Present Illness Initial comments: Patient is a pleasant [age]-year-old male presenting to the emergency Department with complaints of right facial weakness. Onset of symptoms was around 5 days ago. Symptoms progressed overnight. Patient has history of Cramer's palsy with somewhat similar symptoms. Patient states he is able to mostly shut his right eyelid. Patient does complain of right eye dryness. No confusion. No speech problems. No extremity weakness. No loss of sensation.patient did call his doctor's office but advised him to come here. - Related Data Home Medications Medication Instructions Recorded Confirmed amLODIPine BESYLATE [Norvasc] 10 mg PO DAILY 08/18/14 09/08/18 metFORMIN HCL 1,000 mg PO BID 08/18/14 09/08/18 glyBURIDE [Diabeta] 5 mg PO BID 06/07/15 09/08/18 Aspirin 81 mg PO DAILY 09/02/18 09/08/18 Canagliflozin [Invokana] 100 mg PO DAILY 09/02/18 09/08/18 Multivitamin [Multivitamins Adult 1 tab PO DAILY 09/02/18 09/08/18 Gummies] Simvastatin [Zocor] 40 mg PO DAILY 09/02/18 09/08/18 Previous Rx's Medication Instructions Recorded Apixaban [Eliquis] 2.5 mg PO BID #30 tab 09/11/18 Cyclobenzaprine [Flexeril] 10 mg PO HS #30 tab 09/11/18 Docusate [Colace] 100 mg PO DAILY #30 capsule 09/11/18 HYDROcodone/APAP 7.5-325MG [[place] 1 - 2 each PO Q6HR PRN #56 tab 09/11/18 7.5] diazePAM [Valium] 5 mg PO BID #30 tab 09/11/18 predniSONE [Deltasone] 3 tab PO DAILY #21 tab 09/23/20 valACYclovir HCL [Valtrex] 1 tab PO TID #21 tablet 09/23/20 Allergies Allergy/AdvReac Type Severity Reaction Status Date / Time hydromorphone [From Dilaudid] Allergy Nausea & Verified 09/23/20 12:16 Vomiting Review of Systems ROS Statement: Those systems with pertinent positive or pertinent negative responses have been documented in the HPI. ROS Other: All systems not noted in ROS Statement are negative. Constitutional: Denies: fever Eyes: Denies: eye pain ENT: Denies: ear pain Respiratory: Denies: cough Cardiovascular: Denies: chest pain Endocrine: Denies: fatigue Gastrointestinal: Denies: abdominal pain Genitourinary: Denies: dysuria Musculoskeletal: Denies: back pain Skin: Denies: rash Neurological: Reports: as per HPI Past Medical History Past Medical History: Diabetes Mellitus, Hyperlipidemia, Hypertension, Osteoarthritis (OA), Pneumonia, Pulmonary Embolus (PE) Additional Past Medical History / Comment(s): PNEUMONIA-, PAST HX KIDNEY STONES,PULMONARY EMBOLIS History of Any Multi-Drug Resistant Organisms: None Reported Past Surgical History: Orthopedic Surgery Additional Past Surgical History / Comment(s): RIGHT KNEE X2 -ARTHROSCOPIC, KIDNEY STONE REMOVED, LEFT KNEE ARTHROSCOPIC X2, cyst on right theigh removed, epidural for pain management Past Anesthesia/Blood Transfusion Reactions: Motion Sickness Additional Past Anesthesia/Blood Transfusion Reaction / Comment(s): "TOOK LONGER WAKING UP " Past Psychological History: No Psychological Hx Reported Smoking Status: Never smoker Past Alcohol Use History: None Reported Past Drug Use History: None Reported - Past Family History Mother Family Medical History: Cancer, COPD Father Family Medical History: Cancer General Exam Limitations: no limitations General appearance: alert, in no apparent distress Head exam: Present: atraumatic, normocephalic Eye exam: Present: normal appearance, PERRL, EOMI. Absent: nystagmus ENT exam: Present: normal oropharynx Neck exam: Present: normal inspection Respiratory exam: Present: normal lung sounds bilaterally Cardiovascular Exam: Present: regular rate, normal rhythm GI/Abdominal exam: Present: soft. Absent: tenderness Extremities exam: Present: normal inspection. Absent: pedal edema Neurological exam: Present: alert, oriented X3, CN II-XII intact (Except for right-sided facial weakness that does include the forehead. Weakness with eyelid closing as well.) Expanded Speech: Present: fluid speech Cranial nerves: EOM's Intact: Normal, Facial Sensation: Normal, Facial Palsy without Forehead Movement: Normal (Right forehead weakness) Sensory exam: Upper Extremity Light Touch: Normal, Lower Extremity Light Touch: Normal Motor strength exam: RUE: 5, LUE: 5, RLE: 5, LLE: 5 Eye Response: (4) open spontaneously Motor Response: (6) obeys commands Verbal Response: (5) oriented Psychiatric exam: Present: normal affect, normal mood Skin exam: Present: normal color Course Vital Signs 09/23/20 12:16 Temperature 97.7 F Pulse Rate 117 H Respiratory 16 Rate Blood Pressure 188/94 O2 Sat by Pulse 94 L Oximetry Medical Decision Making - Medical Decision Making Repeat blood pressure 156/90. Patient reevaluated and unchanged. Patient updated on results and need for follow-up. Patient will be started on steroids and antivirals. He is made aware of limited benefit secondary to delayed treatment. Patient also advised Lacri-Lube and tape his eye shut at night. - Radiology Data Radiology results: report reviewed (Computed tomography scan of the brain shows no acute process) Disposition Clinical Impression: Cramer's palsy Disposition: HOME SELF-CARE Condition: Stable Instructions (If sedation given, give patient instructions): Cramer Palsy (ED) Additional Instructions: Please follow-up with primary care physician in the next day or 2 for recheck. Use [id number] Lacri-Lube to the right eye 4 times daily and prior to going to bed. Please tape your eye shut at nighttime. Return for confusion, arm or leg weakness, worsening or changing symptoms or other concerns. Prescription has been sent to your pharmacy. Prescriptions: predniSONE [Deltasone] 3 tab PO DAILY #21 tab valACYclovir HCL [Valtrex] 1 tab PO TID #21 tablet Is patient prescribed a controlled substance at d/c from ED?: No Referrals: Colt Crum MD [Primary Care Provider] - 1-2 days Time of Disposition: 14:02
--- NOTE | 2020-09-23 13:14 | CT ---
EXAMINATION TYPE: CT brain wo con DATE OF EXAM: 09/23/2020 HISTORY: right side facial weakness CT DLP: 1084.4 mGycm. Automated Exposure Control for Dose Reduction was Utilized. TECHNIQUE: CT scan of the head is performed without contrast. COMPARISON: None. FINDINGS: There is no acute intracranial hemorrhage or midline shift identified. There is mild diff use ventricular and sulcal prominence consistent with diffuse age-related cerebral atrophy. There is mild low-attenuation in the periventricular white matter consistent with chronic small vessel ischem ic change. The globes are intact and the visualized sinuses are clear. IMPRESSION: No acute intracranial hemorrhage or midline shift. There is mild diffuse age-related ce rebral atrophy and chronic small vessel ischemic change noted.
[2020-09-23 14:16] VITALS: BP 156/90; PULSE 72; RESP 18
== END 2020-09-23 14:18 | disposition home or self-care (01) ==
LOC: EC 12:13
DX: G51.0 Bell's palsy (principal); I10 Essential (primary) hypertension; E78.5 Hyperlipidemia, unspecified; E11.9 Type 2 diabetes mellitus without complications; M19.90 Unspecified osteoarthritis, unspecified site; Z79.84 Long term (current) use of oral hypoglycemic drugs; Z79.82 Long term (current) use of aspirin; Z79.01 Long term (current) use of anticoagulants; Z86.711 Personal history of pulmonary embolism; Z88.5 Allergy status to narcotic agent; Z79.52 Long term (current) use of systemic steroids
CPT/HCPCS: 70450; 99285

== ENCOUNTER → 2022-05-21 | Outpatient (CLI) | payer OTHER | END | disposition home or self-care (01) | LOC: LABPAT 11:33 | PROVIDERS: ATTEND Orthopaedic Surgery | DX: Z22.322 Carrier or suspected carrier of Methicillin resistant Staphylococcus aureus (principal); M17.11 Unilateral primary osteoarthritis, right knee | CPT/HCPCS: 87070 ==

== ENCOUNTER 2022-06-04 13:12 | Observation (INO) | payer OTHER ==
[2022-05-30 15:05] VITALS: BMI 36.9
--- NOTE | 2022-06-03 13:01 | HP ---
HISTORY AND PHYSICAL DATE OF SURGERY: 06/04/2022. HISTORY OF PRESENT ILLNESS: El Coleman is a 61-year-old gentleman seen with symptomatic right knee osteoarthritis. We discussed options for treatment. He elected to proceed with right total knee arthroplasty. Consent obtained. Medical clearance was provided by [facility]. PAST MEDICAL HISTORY: Khl-bipyxiv-fuwklojgi diabetes, hypertension, hyperlipidemia. PAST SURGICAL HISTORY: Knee arthroscopy, left total knee arthroplasty. DAILY MEDICATIONS: 1. Antihypertensive. 2. Jardiance. 3. Metformin. 4. Rybelsus. 5. Simvastatin. ALLERGIES: Motrin and Dilaudid. SOCIAL HISTORY: He denies tobacco use. PHYSICAL EVALUATION OF THE RIGHT KNEE: Range of motion is 0-120. There is a mild effusion present. Tenderness along the medial joint line. Crepitus, medial patellofemoral compartments with range of motion. Pain with patellofemoral compression. Ligaments stable. Hip rotation without pain. Distal neurovascular exam is intact. RADIOGRAPHS: Radiographs of the right knee reveal severe osteoarthritic changes as well as an osteochondral defect of medial femoral condyle. IMPRESSION: 1. Right knee osteoarthritis. 2. Hypertension. 3. Cef-ototxvj-ctbaxkffw diabetes. PLAN: Right total knee arthroplasty. MMODL / IJN: [id number] /
[~2022-06-04 13:12] MED LIST changes: -ACETAMINOPHEN TAB 500 MG TAB PO ONE; +ACETAMINOPHEN TAB 500 MG TAB PO PRN; -DEXAMETHASONE SOD PHOSPHATE 10 MG/ML 1 ML VIAL IV ONE; +DEXAMETHASONE SOD PHOSPHATE 4 MG/ML 1 ML VIAL IV ONE; -LIDOCAINE 1% 20 ML VIAL (10MG/ML) FOR IV START INTRADERMA PRN; -MELOXICAM 7.5 MG TAB PO ONE; +MELOXICAM 7.5 MG TAB PO PRN; -MIDAZOLAM (PF) 2 MG/2 ML VIAL IV PRN; -TRANEXAMIC ACID 1,000 MG in SODIUM CHLORIDE 0.9% 100 ML IVPB ONE; +TRANEXAMIC ACID IN NACL,ISO-OS 1,000 MG in SALINE 1 100ML.BAG IVPB PRN; -ceFAZolin IN SWFI 2 GM/20 ML SYRINGE IVP ONE; +fentaNYL (PF) 50 MCG/ML 2 ML AMP IV PRN
[2022-06-04] MEDS ORDERED: LACTATED RINGERS 1,000 ML IV ONE (13:40)
[2022-06-04 13:58] LABS: Glucose,Whole Blood 90 mg/dL (70-110)
[2022-06-04 14:09] LABS: Basophils # (A) 0.1 k/uL (0-0.2); Basophils % (A) 1 %; Eosinophils # (A) 0.2 k/uL (0-0.7); Eosinophils % (A) 3 %; HCT 48.1 % (39.0-53.0); HGB 16.2 gm/dL (13.0-17.5); Lymphocytes # (A) 1.4 k/uL (1.0-4.8); Lymphocytes % (A) 21 %; MCH 30.6 pg (25.0-35.0); MCHC 33.8 g/dL (31.0-37.0); MCV 90.5 fL (80.0-100.0); Monocytes # (A) 0.5 k/uL (0-1.0); Monocytes % (A) 7 %; Neutrophils # (A) 4.6 k/uL (1.3-7.7); Neutrophils % (A) 67 %; Platelet Count 221 k/uL (150-450); RBC 5.31 m/uL (4.30-5.90); RDW 12.2 % (11.5-15.5); WBC 6.8 k/uL (3.8-10.6)
[2022-06-04] MEDS ORDERED: MIDAZOLAM 2 MG/2 ML VIAL IVP ONE (14:10)
[2022-06-04 14:20] LABS: Calcium 9.4 mg/dL (8.4-10.2); Potassium 4.6 mmol/L (3.5-5.1)
--- NOTE | 2022-06-04 14:32 | P.ANPRN ---
Procedure Note - Anesthesia - Nerve Block Performed Right Adductor Canal Infusion Date of Procedure: 06/04/22 Procedure Start Time: 14:09 Procedure Stop Time: 14:16 Location of Patient: PreOp Indication: Acute Post-Operative Pain, Analgesia, Requested by Surgeon Sedation Type: Sedate with meaningful contact maintained Preparation: Sterile Prep Position: Supine Catheter: Indwelling Needle Types: Pajunk Needle Gauge: 21 Ultrasound used to visualize needle placement: Yes Ultrasound used to observe medication spread: Yes Injectate: 0.5% Ropivacaine (see comment for volume) (20) Blood Aspirated: No Pain Paresthesia on Injection Noted: No Resistance on Injection: Normal Image Stored and Saved: Yes Events: Uneventful and Well Tolerated
--- NOTE | 2022-06-04 14:33 | P.ANPRN ---
Procedure Note - Anesthesia - Nerve Block Performed Right Carlos Single Date of Procedure: 06/04/22 Procedure Start Time: 14:18 Procedure Stop Time: : Location of Patient: PreOp Indication: Acute Post-Operative Pain, Analgesia, Requested by Surgeon Sedation Type: Sedate with meaningful contact maintained Preparation: Sterile Prep Position: Supine Catheter: None Needle Types: Pajunk Needle Gauge: 21 Ultrasound used to visualize needle placement: Yes Ultrasound used to observe medication spread: Yes Injectate: 0.5% Ropivacaine (see comment for volume) (10) Blood Aspirated: No Pain Paresthesia on Injection Noted: No Resistance on Injection: Normal Image Stored and Saved: Yes Events: Uneventful and Well Tolerated
[2022-06-04] MEDS ORDERED: PROPOFOL 10 MG/ML 20 ML VIAL IV ONE (15:04)
[2022-06-04] MEDS ORDERED: TRANEXAMIC ACID IN NACL,ISO-OS 1,000 MG/100 ML BAG ONE (15:04)
[2022-06-04] MEDS ORDERED: MIDAZOLAM 2 MG/2 ML VIAL ONE (15:04)
[2022-06-04] MEDS ORDERED: fentaNYL (PF) 50 MCG/ML 2 ML AMP ONE (15:04)
[2022-06-04] MEDS ORDERED: ROPIVACAINE 5 MG/ML 30 ML VIAL ONE (15:04)
[2022-06-04] MEDS ORDERED: NALOXONE 0.4 MG/ML 1 ML VIAL IV PRN (16:51)
[2022-06-04] MEDS ORDERED: traMADol 50 MG TAB PO PRN (16:51)
[2022-06-04] MEDS ORDERED: MORPHINE SULFATE 2 MG/ML SYRINGE IVP PRN ×2 (16:51)
[2022-06-04] MEDS ORDERED: HYDROcodone/APAP 5-325MG 1 EACH TAB PO PRN (16:51)
[2022-06-04] MEDS ORDERED: MORPHINE SULFATE 4 MG/ML SYRINGE IV PRN (16:51)
--- NOTE | 2022-06-04 16:51 | P.OP ---
Date of Procedure: 06/04/22 Preoperative Diagnosis: Right knee osteoarthritis Postoperative Diagnosis: Right knee osteoarthritis Procedure(s) Performed: Right total knee arthroplasty Implants: 1. Depuy attune size 7 right cruciate retaining cemented femur 2. Depuy attune size 7 fixed-bearing cemented tibial baseplate 3. Depuy attune size 7 fixed-bearing cruciate retaining 6 mm polyethylene tibial insert 4. Depuy attune 41 mm all polyethylene cemented patella Anesthesia: GETA, regional (Adductor canal catheter, Ipack block) Surgeon: Geoffrey Pineda Experimental Assembler #1: Asael Brush Estimated Blood Loss (ml): 45 Pathology: other (Bone) Condition: stable Disposition: PACU Indications for Procedure: 61-year-old patient seen with symptomatic right knee osteoarthritis. After having treatment options discussed, he elected to proceed with total knee arthroplasty. Operative Findings: see description of procedure Description of Procedure: Patient was taken to the operative suite after having an adductor canal catheter placed by the department of anesthesia. Patient underwent a general anesthetic by the department of anesthesia. Patient was given preoperative IV intake antibiotics and TXA. A well-padded tourniquet was placed about the right lower extremity. The lower extremity was then prepped and draped in the normal sterile orthopedic fashion. The extremity was elevated, a tourniquet was insufflated to 300. A standard anterior incision was made sharply through skin. Dissection was taken down through the subcutaneous soft tissues down to the extensor mechanism. A medial arthrotomy was performed, patella was everted and knee was flexed. There was advanced osteoarthritis noted. I introduced my distal intramedullary femoral drill. I then introduced the distal femoral cut ting jig. Hardeep QUINTANA secured the cutting jig with 2 pins. I held retractors in position while Hardeep QUINTANA performed the distal femoral resection through the guide area we now removed her distal femoral cutting guide. We now placed our 4-in-1 femoral cutting block and positioned and it was secured with 2 pins by Hardeep QUINTANA while I held the block in position. The distal femoral finishing was now completed. A proximal tibial cutting guide was positioned. I held the guide in the appropriate position with both hands well Hardeep QUINTANA inserted stabilizing pins into the guide. Proximal tibial cut was made. We now placed a trial femoral component into position, along with an appropriate size tibial tray and insert. We now took the knee through range of motion and had full extension good flexion and good overall soft tissue balance noted. The patella was everted and stabilized with 2 towel clips held by Hardeep QUINTANA while I performed a flush with patellar quad tendon utilizing a fresh sawblade. We templated the patella, appropriate drill holes were made. An appropriate trial patella was positioned, knee was taken through full range of motion with the patella tracking very nicely. The trial patella was removed. Drill holes were made through the femoral component. All trial components were removed after marking off the appropriate rotation of the tibia. Retractors were now positioned along the proximal tibia. An appropriate keel punch was made with the appropriate size tibial guide by myself on Hardeep QUINTANA assisted by holding retractors. At this point appropriate size implants were chosen and opened. The joint was irrigated copiously with pulse lavage mechanical irrigation. The wound was irrigated with pulse lavage mechanical irrigation. We mixed antibiotic methylmethacrylate. We placed the knee into flexion. We placed multiple retractors assisted by Hardeep QUINTANA to expose the proximal tibia. Once the methyl methacrylate was ready, the tibial component was cemented into place removing any excess methylmethacrylate form by both myself and Hardeep QUINTANA. The femoral component was cemented into place removing the removing any excess methylmethacrylate performed by both myself and Hardeep QUINTANA. We then inserted the appropriate size polyethylene tibial insert. We made sure that it was locked into position. We took the knee into full extension, and then back in a flexion making sure we had removed any excess methylmethacrylate. The patellar component was then cemented down and secured with clamp. Excess methylmethacrylate removed. We kept the knee in full extension, patellar clamp in position until methylmethacrylate had hardened. Once it had hardened the patellar clamp was removed. The knee was taken through full range of motion. The patella tracked nicely. There was good soft tissue balancing. The tourniquet was now released. Additional hemostasis was achieved via electrocautery. A second gram of TXA was given. The wound again was irrigated with pulse lavage mechanical irrigation. The extensor mechanism was repaired with Ethibond suture. We checked the repair with range of motion and it was stable. The subcutaneous soft tissues were repaired with Vicryl in layers. The skin was approximated with pernio/Dermabond. Sterile dressings were applied followed by loose web roll and Santy bandage. The patient was transferred to a bed, and taken to recovery in stable and satisfactory condition. Hardeep QUINTANA assisted with this complex procedure.
--- NOTE | 2022-06-04 17:38 | XR ---
EXAMINATION TYPE: XR knee limited RT DATE OF EXAM: 06/04/2022 5:25 PM INDICATION: Patient age:Male; 61 years old; Reason for study: Evaluation for Postop abnormality and alignment. COMPARISON: None. TECHNIQUE: The Right knee(s) was examined in Frontal, lateral and oblique projections. FINDINGS: Status post left total knee arthroplasty changes with hardware in appropriate alignment a nd intact. No evidence of fracture. Subcutaneous lucencies and lucencies within the joint consistent with surgical changes. IMPRESSION: Status post total knee arthroplasty changes with hardware intact and appropriate alignment. No fractu res identified.
[2022-06-04] MEDS: LACTATED RINGERS 1,000 ML IV SCH ×2 (18:22→18:50)
[2022-06-04] MEDS: MORPHINE SULFATE 4 MG/ML SYRINGE IV PRN ×2 (20:28→23:22)
[2022-06-04] MEDS: SENNOSIDES-DOCUSATE SODIUM 1 EACH TAB PO SCH (20:29)
[2022-06-04] MEDS: ROPIVACAINE 1,100 MG, SODIUM CHLORIDE 0.9% 500 ML 330 ML, EMPTY PAIN BALL 1 EACH MISCELLANE PRN ×2 (23:18)
[2022-06-04] MEDS: HYDROcodone/APAP 7.5-325MG 1 EACH TAB PO PRN (23:22)
[2022-06-04] MEDS: hydrOXYzine pamoate 25 MG CAP PO PRN (23:22)
[2022-06-05] MEDS: LACTATED RINGERS 1,000 ML IV SCH ×3 (03:23→11:46)
--- NOTE | 2022-06-05 06:29 | P.PN ---
Progress Note - Text Progress Note Date: 06/05/22 POD 1 left TKR. Adductor canal catheter in place. Reporting pain proximal to knee, no pain distal to knee. not been moving to much. Using pain medications as needed. pump at 8cc/hr. feet are sensate.
[2022-06-05 06:33] LABS: Glucose,Whole Blood 137 mg/dL (70-110)
[2022-06-05] MEDS: HYDROcodone/APAP 7.5-325MG 1 EACH TAB PO PRN ×4 (06:34→20:30)
[2022-06-05] MEDS: hydrOXYzine pamoate 25 MG CAP PO PRN ×3 (06:34→21:02)
[2022-06-05] MEDS ORDERED: HYDROmorphone 0.5 MG/0.5 ML SYRINGE IVP PRN (07:13)
[2022-06-05] MEDS ORDERED: HYDROcodone/APAP 5-325MG 1 EACH TAB PO PRN (07:14)
[2022-06-05] MEDS: HYDROmorphone 1 MG/ML 1 ML SYRINGE IVP PRN ×2 (07:50→16:49)
[2022-06-05 09:28] LABS: Basophils # (A) 0.01 X 10*3/uL (0.00-0.10); Basophils % (A) 0.1 %; Eosinophils # (A) 0 X 10*3/uL (0.04-0.35); Eosinophils % (A) 0 %; HCT 44.6 % (39.6-50.0); HGB 14.7 g/dL (13.0-17.0); Immature Grans, Automated 0.6 %; Lymphocytes # (A) 0.91 X 10*3/uL (0.90-5.00); Lymphocytes % (A) 7.2 %; MCH 29.2 pg (27.0-32.0); MCV 88.7 fL (80.0-97.0); Mean Platelet Volume 9.3 fL (9.5-12.2); Monocytes # (A) 1.02 X 10*3/uL (0.20-1.00); Monocytes % (A) 8.1 %; NRBC Per 100 WBC 0 /100 WBCS (0.0-0.0); Neutrophils # (A) 10.61 X 10*3/uL (1.80-7.70); Platelet Count 205 X 10*3/uL (140-440); RBC 5.03 X 10*6/uL (4.40-5.60); RDW 12.1 % (11.5-14.5); WBC 12.63 X 10*3/uL (4.50-10.00)
[2022-06-05] MEDS: ENOXAPARIN 30 MG/0.3 ML SYRINGE SQ SCH ×2 (10:22→21:03)
--- NOTE | 2022-06-05 10:24 | P.PN ---
Subjective Progress Note Date: 06/05/22 Principal diagnosis: Right knee osteoarthritis Patient was seen at bedside this morning sitting up in chair with legs elevated. Patient currently rates his pain as 5 or 6/10. Patient says he does have a walker for home. Patient says he did get up with therapy this morning and walked around the room and sat in chair. Patient says he was icing his knee overnight and was unable to get any sleep due to the pain. Patient says he did have his left knee replaced a few years ago and did stay in the hospital for several days before going home. Patient says he normally does not take any pain medication at home. Patient has urinated since surgery. Patient has not had bowel movement yet, however, patient says he has been passing gas. Patient denies chest pain, fever, shortness breath, nausea, vomiting, change in vision, loss of bowel/bladder control. Objective - Vital Signs Vital signs: Vital Signs Temp 98.7 F 06/05/22 08:00 Pulse 95 06/05/22 08:00 Resp 19 06/05/22 08:00 BP 179/93 06/05/22 08:00 Pulse Ox 93 L 06/05/22 09:05 FiO2 Intake & Output 06/04/22 06/05/22 06/05/22 18:59 06:59 18:59 Intake Total 850 1200 Output Total 45 2800 Balance 805 -1600 Weight 107.3 kg Intake: IV 850 Oral 1200 Output: Urine 2600 Emesis 200 Estimated Blood Loss 45 - Exam Right knee: Incision is clean, dry, and intact. The silver foam dressing is in good condition. There is minimal soft tissue swelling and ecchymosis surrounding the medial and lateral aspects of the incision. Calf is soft, no tenderness with palpation. Plantar flexion, dorsiflexion, EHL, FHL are intact. Sensory exam to light touch throughout the extremity is intact, dorsal pedis pulses 2+. - Labs CBC & Chem 7: 06/05/22 06:01 06/04/22 13:58 Labs: Abnormal Lab Results - Last 24 Hours (Table) 06/05/22 06/05/22 Range/Units 06:01 06:31 WBC 12.63 H (4.50-10.00) X 10*3/uL MPV 9.3 L (9.5-12.2) fL Immature Gran # 0.08 H (0.00-0.04) X 10*3/uL Neutrophils # 10.61 H (1.80-7.70) X 10*3/uL Monocytes # 1.02 H (0.20-1.00) X 10*3/uL Eosinophils # 0 L (0.04-0.35) X 10*3/uL POC Glucose (mg/dL) 137 H (70-110) mg/dL Assessment and Plan Assessment: Right knee osteoarthritis - Postoperative day 1 status post right total knee arthroplasty Plan: 1. Right knee osteoarthritis - right total knee arthroplasty performed yesterday, 06/04/2022. Patient stable at bedside this morning. Patient will stay one more night for pain control. Plan discharge home with health services tomorrow. Pain medications will be adjusted as needed 2. Appreciate medical management 3. Pain management - - [place]; tramadol; Dilaudid 4. DVT prophylaxis - Lovenox 5. GI prophylaxis - senna 6. PT/OT - weightbearing as tolerated with walker 7. Encourage incentive spirometer use 8. Discharge planning - plan home with health services tomorrow Time with Patient: Less than 30
[2022-06-05] MEDS ORDERED: DEXTROSE 50% SYRINGE 50 ML IVP PRN ×2 (10:31)
[2022-06-05 11:48] LABS: Glucose,Whole Blood 165 mg/dL (70-110)
[2022-06-05] MEDS: lisinopriL 20 MG TAB PO SCH (12:23)
[2022-06-05] MEDS: METOPROLOL TARTRATE 25 MG TAB PO SCH ×2 (12:24→21:03)
[2022-06-05] MEDS: INSULIN ASPART (NovoLOG) 100 UNIT/ML VIAL SQ SCH ×3 (12:24→21:03)
--- NOTE | 2022-06-05 14:20 | P.CONS ---
History of Present Illness - Reason for Consult Consult date: 06/05/22 Medical management, postop right knee arthroplasty - History of Present Illness This is a 61-year-old male who was recently admitted under orthopedic services for right knee arthroplasty, postop day #1. Patient follows with Dr. Colt Crum his primary care provider with a past medical history of diabetes mellitus, hyperlipidemia, hypertension, osteoarthritis, past history of pulmonary embolisms. Patient denies ever using tobacco denies alcohol or illicit drug use. Patient reports he had bilateral pulmonary embolisms back in 2009 and was on anticoagulation been although is not on any form of anticoagulation at this time. Patient does have history of diabetes and takes oral diabetic agents although will hold for now and continue sliding scale and Accu-Cheks before meals and at bedtime. Patient is having moderate to severe pain that is uncontrolled and staying overnight for close observation for pain management. Patient is currently maintained on IV Dilaudid along with [place] and encourage the patient to avoid IV narcotics as much as possible. Patient is tolerating diet with no reports of nausea or vomiting and will decrease the dose of IV lactated Ringer's. Patient reports he did not have very much sleep last night due to pain will add a low-dose as needed sleep medication. Follow-up knee x-ray with Dr. Larisa Miguel showed intact hardware with appropriate alignment and no fractures identified. Encouraged the patient to increase activity as tolerated and continue working with physical therapy. Patient with a incentive spirometer at the bedside encouraged to continue using at least 10 times every hour while awake and also instructed him how to properly use the device. WBC mildly elevated post surgery most likely reactive this patient is afebrile denies chest pain or shortness of breath. Review Of Systems: Constitutional: No fever, no chills, no night sweats. No weight change. No weakness, fatigue or lethargy. No daytime sleepiness. EENT: No headache. No blurred vision or double vision, no loss of vision. No loss of Hearing, no ringing in the ears, no dizziness. No nasal drainage or congestion. No epistaxis. No sore throat. Lungs: No shortness of breath, cough, no sputum production. No wheezing. Cardiovascular: No chest pain, no lower extremity edema. No palpitations. No paroxysmal nocturnal dyspnea. No orthopnea. No lightheadedness or dizziness. No syncopal episodes. Abdominal: No abdominal pain. No nausea, vomiting. No diarrhea. No constipation. No bloody or tarry stools.. No loss of appetite. Genitourinary: No dysuria, increased frequency, urgency. No urinary retention. Musculoskeletal: No myalgias. No muscle weakness, no gait dysfunction, no frequent falls. No back pain. No neck pain. Reports increased right knee pain Integumentary: No wounds, no lesions. No rash or pruritus. No unusual bruising. No change in hair or nails. Neurologic: No aphasia. No facial droop. No change in mentation. No head injury. No headache. No paralysis. No paresthesia. Psychiatric: No depression. No anxiety. No mood swings. Endocrine: No abnormal blood sugars. No weight change. No excessive sweating or thirst. No cold intolerance. PHYSICAL EXAMINATION: GENERAL: The patient is alert and oriented x4, Well developed, well nourished. Obese. HEENT: Pupils are round and equally reacting to light. EOMI. no scleral icterus. No conjunctival pallor. Normocephalic, atraumatic. No pharyngeal erythema. No thyromegaly. CARDIOVASCULAR: S1 and S2 muffled PULMONARY: diminished breath sounds bilaterally with no wheezing or rhonchi noted. ABDOMEN: soft. Nontender on exam. non-distended, normoactive bowel sounds. No palpable organomegaly. MUSCULOSKELETAL: No joint swelling or deformity. EXTREMITIES: No cyanosis, clubbing, or pedal edema. Right knee surgical site is dry and intact with no surrounding erythema or swelling noted. NEUROLOGICAL: Gross neurological examination did not reveal any focal deficits. SKIN: No rashes. Assessment: Status post right total knee arthroplasty, postop day 1 Mild leukocytosis, most likely reactive secondary to above no signs of infection as patient is afebrile denies shortness of breath or cough or dysuria Diabetes mellitus, type II Hyperlipidemia history Hypertension history History of pulmonary embolisms in the past not on anticoagulation Obesity with a BMI of 36.0 GI prophylaxis DVT prophylaxis Full code Plan: Recommend to continue with current medications and management per orthopedic services. Patient has been seen and evaluated by PT/OT therapy and did well although continued with uncontrolled pain. Patient is being monitored overnight and medications have been adjusted for better pain control. Patient is currently maintained on IV Dilaudid and [place] and recommend to continue using oral pain medications. Patient is a diabetic normally takes oral medications although this will be held and will continue sliding scale and Accu-Cheks before meals and at bedtime. Patient does have incentive spirometer at the bedside although was using it incorrectly and educated the patient how to properly use and recommended using at least 10 times every hour while awake. Other home medications have been resumed as blood pressure is elevated. We will continue to monitor with orthopedics during hospitalization. Pain management and DVT prophylaxis per orthopedics. Thank you kindly for this consultation. The impression and plan of care has been dictated by Shraddha Marin, nurse practitioner as directed. Dr. Grabiel MCCLENDON I have performed a history and examination and MDM of this patient, discussed the same with the dictator, and agree with the dictator's assessment and plan as written ,documented as a scribe. Based on total visit time, I have performed more than 50% of the visit. Any additional findings or plans will be noted. Past Medical History Past Medical History: Diabetes Mellitus, Hyperlipidemia, Hypertension, Osteoarthritis (OA), Pneumonia, Pulmonary Embolus (PE) Additional Past Medical History / Comment(s): PAST HX KIDNEY STONES, "heart blockage", History of Any Multi-Drug Resistant Organisms: None Reported Past Surgical History: Joint Replacement, Orthopedic Surgery Additional Past Surgical History / Comment(s): RIGHT KNEE X2 -ARTHROSCOPIC, KIDNEY STONE REMOVED, LEFT KNEE ARTHROSCOPIC X2, cyst on right thigh removed, epidural for pain management , left knee replacement Past Anesthesia/Blood Transfusion Reactions: Previous Problems w/ Anesthesia, Motion Sickness Additional Past Anesthesia/Blood Transfusion Reaction / Comm: "TOOK LONGER WAKING UP " Past Psychological History: No Psychological Hx Reported Smoking Status: Never smoker Past Alcohol Use History: None Reported Past Drug Use History: None Reported - Past Family History Mother Family Medical History: Cancer, Deep Vein Thrombosis (DVT) Father Family Medical History: Cancer Medications and Allergies Home Medications Medication Instructions Recorded Confirmed Type metFORMIN HCL [Glucophage] 1,000 mg PO BID 08/18/14 05/30/22 History glyBURIDE [Diabeta] 5 mg PO BID 06/07/15 05/30/22 History Aspirin 81 mg PO DAILY 09/02/18 05/30/22 History Multivitamin [Multivitamins Adult 1 tab PO DAILY 09/02/18 05/30/22 History Gummies] Simvastatin [Zocor] 40 mg PO HS 09/02/18 05/30/22 History Empagliflozin [Jardiance] 25 mg PO DAILY 09/23/20 05/30/22 History Metoprolol Tartrate [Lopressor] 25 mg PO BID 09/23/20 05/30/22 History Semaglutide [Rybelsus] 7 mg PO [id number] 09/23/20 05/30/22 History lisinopriL [Zestril] 20 mg PO DAILY 05/30/22 05/30/22 History Allergies Allergy/AdvReac Type Severity Reaction Status Date / Time ibuprofen [From Motrin] Allergy Nausea Verified 05/30/22 14:51 Physical Exam Vitals: Vital Signs Temp Pulse Pulse Pulse Pulse Resp BP 06/05/22 09:05 06/05/22 08:00 98.7 F 95 19 179/93 06/05/22 02:00 98.0 F 103 H 17 181/96 06/04/22 21:42 86 144/94 06/04/22 21:27 87 147/88 06/04/22 21:11 85 158/91 06/04/22 20:56 84 159/90 06/04/22 20:42 91 157/87 06/04/22 20:26 92 168/97 06/04/22 20:11 85 172/99 06/04/22 20:00 98.0 F 90 17 156/91 06/04/22 19:56 82 175/99 06/04/22 19:42 73 173/88 06/04/22 19:26 78 174/93 06/04/22 19:11 74 161/95 06/04/22 19:06 82 175/99 06/04/22 18:51 73 173/88 06/04/22 18:36 76 174/93 06/04/22 18:21 97.4 F L 70 16 161/95 06/04/22 17:45 76 16 06/04/22 17:30 65 16 06/04/22 17:15 72 16 06/04/22 17:04 96.9 F L 16 06/04/22 14:32 96 18 06/04/22 14:03 97.7 F 93 18 BP Pulse Ox 06/05/22 09:05 93 L 06/05/22 08:00 96 06/05/22 02:00 92 L 06/04/22 21:42 96 06/04/22 21:27 06/04/22 21:11 95 06/04/22 20:56 90 L 06/04/22 20:42 94 L 06/04/22 20:26 94 L 06/04/22 20:11 96 06/04/22 20:00 92 L 06/04/22 19:56 96 06/04/22 19:42 93 L 06/04/22 19:26 96 06/04/22 19:11 98 06/04/22 19:06 96 06/04/22 18:51 96 06/04/22 18:36 97 06/04/22 18:21 97 06/04/22 17:45 151/78 06/04/22 17:30 153/85 96 06/04/22 17:15 153/91 97 06/04/22 17:04 142/78 96 06/04/22 14:32 126/94 97 06/04/22 14:03 145/95 96 Intake and Output 06/04/22 06/05/22 06/05/22 22:59 06:59 14:59 Intake Total 750 1200 Output Total 45 2800 Balance 705 -1600 Intake: IV 750 Oral 1200 Output: Urine 2600 Emesis 200 Estimated Blood Loss 45 Other: Weight 107.3 kg Results CBC & Chem 7: 06/05/22 06:01 06/04/22 13:58 Labs: Abnormal Lab Results - Last 24 Hours (Table) 06/05/22 06/05/22 Range/Units 06:01 06:31 WBC 12.63 H (4.50-10.00) X 10*3/uL MPV 9.3 L (9.5-12.2) fL Immature Gran # 0.08 H (0.00-0.04) X 10*3/uL Neutrophils # 10.61 H (1.80-7.70) X 10*3/uL Monocytes # 1.02 H (0.20-1.00) X 10*3/uL Eosinophils # 0 L (0.04-0.35) X 10*3/uL POC Glucose (mg/dL) 137 H (70-110) mg/dL
[2022-06-05 16:37] LABS: Glucose,Whole Blood 172 mg/dL (70-110)
[2022-06-05 20:53] LABS: Glucose,Whole Blood 152 mg/dL (70-110)
[2022-06-05] MEDS: TEMAZEPAM 7.5 MG CAP PO PRN (21:03)
[2022-06-05] MEDS: ATORVASTATIN 20 MG TAB PO SCH (21:03)
[2022-06-05] MEDS: SENNOSIDES-DOCUSATE SODIUM 1 EACH TAB PO SCH (21:03)
[2022-06-06] MEDS: hydrOXYzine pamoate 25 MG CAP PO PRN ×3 (01:03→11:46)
[2022-06-06] MEDS: HYDROcodone/APAP 7.5-325MG 1 EACH TAB PO PRN ×4 (01:03→15:53)
[2022-06-06 05:57] LABS: Glucose,Whole Blood 138 mg/dL (70-110)
[2022-06-06] MEDS: HYDROmorphone 1 MG/ML 1 ML SYRINGE IVP PRN ×4 (06:16→21:10)
[2022-06-06] MEDS: INSULIN ASPART (NovoLOG) 100 UNIT/ML VIAL SQ SCH ×4 (06:54→22:40)
[2022-06-06] MEDS: ENOXAPARIN 30 MG/0.3 ML SYRINGE SQ SCH ×2 (08:22→21:10)
[2022-06-06] MEDS: lisinopriL 20 MG TAB PO SCH (08:22)
[2022-06-06] MEDS: MULTIVITAMINS, THERA 1 EACH TAB PO SCH (08:22)
[2022-06-06] MEDS: METOPROLOL TARTRATE 25 MG TAB PO SCH ×2 (08:22→21:10)
[2022-06-06] MEDS: ROPIVACAINE 1,100 MG, SODIUM CHLORIDE 0.9% 500 ML 330 ML, EMPTY PAIN BALL 1 EACH MISCELLANE PRN ×4 (08:30→21:12)
[2022-06-06] MEDS ORDERED: lisinopriL 20 MG TAB PO SCH (09:00)
[2022-06-06 11:39] LABS: Glucose,Whole Blood 117 mg/dL (70-110)
--- NOTE | 2022-06-06 12:47 | P.PN ---
Subjective Progress Note Date: 06/06/22 Principal diagnosis: Right knee osteoarthritis Patient was seen at bedside this morning lying in semirecumbent position in bed. Patient currently rates his pain as 5 or 6/10. Patient says he does have a walker for home. Patient says he did get up with therapy yesterday morning and walked around the room and sat in chair. Patient says his pain is under better control today, however, patient says he is still having difficult time bearing full weight on his right leg at this time. Patient says he is only able to stand on his toes. Patient says he did have his left knee replaced a few years ago and did stay in the hospital for several days before going home. Patient sa ys he normally does not take any pain medication at home. Patient has urinated since surgery. Patient has not had bowel movement yet, however, patient says he has been passing gas. Patient denies chest pain, fever, shortness breath, nausea, vomiting, change in vision, loss of bowel/bladder control. Objective - Vital Signs Vital signs: Vital Signs Temp 97.9 F 06/06/22 08:00 Pulse 105 H 06/06/22 08:00 Resp 20 06/06/22 08:00 BP 175/85 06/06/22 08:00 Pulse Ox 92 L 06/06/22 08:00 FiO2 Intake & Output 06/05/22 06/06/22 06/06/22 18:59 06:59 18:59 Output Total 2200 Balance -2200 Output: Urine 2200 Other: Voiding Method Urinal # Voids 2 - Exam Right knee: Incision is clean, dry, and intact. The silver foam dressing is in good condition. There is minimal soft tissue swelling and ecchymosis surrounding the medial and lateral aspects of the incision. Calf is soft, no tenderness with palpation. Plantar flexion, dorsiflexion, EHL, FHL are intact. Sensory exam to light touch throughout the extremity is intact, dorsal pedis pulses 2+. - Labs CBC & Chem 7: 06/05/22 06:01 06/04/22 13:58 Labs: Abnormal Lab Results - Last 24 Hours (Table) 06/05/22 06/05/22 06/05/22 Range/Units 06:01 11:47 16:36 WBC 12.63 H (4.50-10.00) X 10*3/uL MPV 9.3 L (9.5-12.2) fL Immature Gran # 0.08 H (0.00-0.04) X 10*3/uL Neutrophils # 10.61 H (1.80-7.70) X 10*3/uL Monocytes # 1.02 H (0.20-1.00) X 10*3/uL Eosinophils # 0 L (0.04-0.35) X 10*3/uL POC Glucose (mg/dL) 165 H 172 H (70-110) mg/dL 06/05/22 06/06/22 Range/Units 20:44 05:48 WBC (4.50-10.00) X 10*3/uL MPV (9.5-12.2) fL Immature Gran # (0.00-0.04) X 10*3/uL Neutrophils # (1.80-7.70) X 10*3/uL Monocytes # (0.20-1.00) X 10*3/uL Eosinophils # (0.04-0.35) X 10*3/uL POC Glucose (mg/dL) 152 H 138 H (70-110) mg/dL Assessment and Plan Assessment: Right knee osteoarthritis - Postoperative day 2 status post right total knee arthroplasty Plan: 1. Right knee osteoarthritis - right total knee arthroplasty performed 06/04/2022. Patient stable at bedside this morning. Patient will stay one more night for pain control. Plan discharge home with health services tomorrow. Pain medications will be adjusted as needed 2. Appreciate medical management 3. Pain management - - [place]; tramadol; Dilaudid 4. DVT prophylaxis - Lovenox 5. GI prophylaxis - senna 6. PT/OT - weightbearing as tolerated with walker 7. Encourage incentive spirometer use 8. Discharge planning - plan home with health services tomorrow Time with Patient: Less than 30
[2022-06-06 16:53] LABS: Glucose,Whole Blood 119 mg/dL (70-110)
[2022-06-06] MEDS: SENNOSIDES-DOCUSATE SODIUM 1 EACH TAB PO SCH (21:10)
[2022-06-06] MEDS: ATORVASTATIN 20 MG TAB PO SCH (21:11)
[2022-06-06 22:40] LABS: Glucose,Whole Blood 138 mg/dL (70-110)
[2022-06-06] MEDS: TEMAZEPAM 7.5 MG CAP PO PRN (22:42)
[2022-06-07] MEDS: HYDROcodone/APAP 7.5-325MG 1 EACH TAB PO PRN ×2 (01:02→08:16)
[2022-06-07] MEDS: hydrOXYzine pamoate 25 MG CAP PO PRN (01:03)
[2022-06-07 03:10] VITALS: RESP 17
--- NOTE | 2022-06-07 05:34 | P.PN ---
Subjective Progress Note Date: 06/06/22 - Reason for Consult Consult date: 06/05/22 Medical management, postop right knee arthroplasty - History of Present Illness This is a 61-year-old male who was recently admitted under orthopedic services for right knee arthroplasty, postop day #1. Patient follows with Dr. Colt Crum his primary care provider with a past medical history of diabetes mellitus, hyperlipidemia, hypertension, osteoarthritis, past history of pulmonary embolisms. Patient denies ever using tobacco denies alcohol or illicit drug use. Patient reports he had bilateral pulmonary embolisms back in 2009 and was on anticoagulation been although is not on any form of anticoagulation at this time. Patient does have history of diabetes and takes oral diabetic agents although will hold for now and continue sliding scale and Accu-Cheks before meals and at bedtime. Patient is having moderate to severe pain that is uncontrolled and staying overnight for close observation for pain management. Patient is currently maintained on IV Dilaudid along with [place] and encourage the patient to avoid IV narcotics as much as possible. Patient is tolerating diet with no reports of nausea or vomiting and will decrease the dose of IV lactated Ringer's. Patient reports he did not have very much sleep last night due to pain will add a low-dose as needed sleep medication. Follow-up knee x-ray with Dr. Larisa Miguel showed intact hardware with appropriate alignment and no fractures identified. Encouraged the patient to increase activity as tolerated and continue working with physical therapy. Patient with a incentive spirometer at the bedside encouraged to continue using at least 10 times every hour while awake and also instructed him how to properly use the device. WBC mildly elevated post surgery most likely reactive this patient is afebrile denies chest pain or shortness of breath. 06/06/2022 Patient is seen this morning working with physical therapy and did well but pain remains unmanaged. Patient is reporting 10/10 on the pain scale. Per RN pain pump was adjusted as well with no relief. Patient is afebrile and denies chest pain or shortness of breath. Denies nausea or vomiting and tolerating diet. Recommend accuchecks achs and sliding scale as needed. Reports to passing gas with no bowel movement as of yet. Using incentive spirometer at the bedside. Review of systems: Constitutional: No reports of fatigue, fever, or chills Cardiovascular: No reports of chest pain or palpitations Respiratory: No reports of shortness of breath or cough GI: No reports of nausea, vomiting, or diarrhea : No reports of dysuria or retention Neurovascular: No reports of weakness or numbness, reports severe right knee pain All medications have been reviewed PHYSICAL EXAMINATION: GENERAL: The patient is alert and oriented x4, Well developed, well nourished. Obese. HEENT: Pupils are round and equally reacting to light. EOMI. no scleral icterus. No conjunctival pallor. Normocephalic, atraumatic. No pharyngeal erythema. No thyromegaly. CARDIOVASCULAR: S1 and S2 muffled PULMONARY: diminished breath sounds bilaterally with no wheezing or rhonchi noted. ABDOMEN: soft. Nontender on exam. non-distended, normoactive bowel sounds. No palpable organomegaly. MUSCULOSKELETAL: No joint swelling or deformity. EXTREMITIES: No cyanosis, clubbing, or pedal edema. Right knee surgical site is dry and intact with no surrounding erythema or swelling noted. NEUROLOGICAL: Gross neurological examination did not reveal any focal deficits. SKIN: No rashes. Assessment: Status post right total knee arthroplasty, postop day 2 Mild leukocytosis, most likely reactive secondary to above no signs of infection as patient is afebrile denies shortness of breath or cough or dysuria Diabetes mellitus, type II Hyperlipidemia history Hypertension history History of pulmonary embolisms in the past not on anticoagulation Obesity with a BMI of 36.0 GI prophylaxis DVT prophylaxis Full code Plan: Recommend to continue with current medications and management per orthopedic services. Patient working with PT/OT therapy and did well although continued with uncontrolled pain. Patient is reporting his pain as a 10/10 on the pain scale. Patient is being closely monitored overnight and medications have been adjusted for better pain control. Patient is currently maintained on IV Dilaudid and [place] and recommend to continue using oral pain medications. Recommend to continue sliding scale and Accu-Cheks before meals and at bedtime. Patient does have incentive spirometer and recommended using at least 10 times every hour while awake. Other home medications have been resumed as blood pressure is elevated. We will continue to monitor with orthopedics during hospitalization. Pain management and DVT prophylaxis per orthopedics. Thank you kindly for this consultation. Possible discharge in 24 hours. The impression and plan of care has been dictated by Shraddha Marin, nurse practitioner as directed. Dr. Grabiel MCCLENDON I have performed a history and examination and MDM of this patient, discussed the same with the dictator, and agree with the dictator's assessment and plan as written ,documented as a scribe. Based on total visit time, I have performed more than 50% of the visit. Any additional findings or plans will be noted. Objective - Vital Signs Vital signs: Vital Signs Temp 97.9 F 06/06/22 08:00 Pulse 105 H 06/06/22 08:00 Resp 20 06/06/22 08:00 BP 175/85 06/06/22 08:00 Pulse Ox 92 L 06/06/22 08:00 FiO2 Intake & Output 06/05/22 06/06/22 06/06/22 18:59 06:59 18:59 Output Total 2200 Balance -2200 Output: Urine 2200 Other: Voiding Method Urinal # Voids 2 - Labs CBC & Chem 7: 06/05/22 06:01 06/04/22 13:58 Labs: Abnormal Lab Results - Last 24 Hours (Table) 06/05/22 06/05/22 06/05/22 Range/Units 11:47 16:36 20:44 POC Glucose (mg/dL) 165 H 172 H 152 H (70-110) mg/dL 06/06/22 Range/Units 05:48 POC Glucose (mg/dL) 138 H (70-110) mg/dL
[2022-06-07 06:20] LABS: Glucose,Whole Blood 138 mg/dL (70-110)
[2022-06-07] MEDS: INSULIN ASPART (NovoLOG) 100 UNIT/ML VIAL SQ SCH ×2 (06:35→12:35)
[2022-06-07] MEDS: MULTIVITAMINS, THERA 1 EACH TAB PO SCH (08:18)
[2022-06-07] MEDS: lisinopriL 20 MG TAB PO SCH (08:18)
[2022-06-07] MEDS: ENOXAPARIN 30 MG/0.3 ML SYRINGE SQ SCH (08:18)
[2022-06-07] MEDS: METOPROLOL TARTRATE 25 MG TAB PO SCH (08:18)
[2022-06-07 09:31] LABS: Basophils # (A) 0.03 X 10*3/uL (0.00-0.10); Basophils % (A) 0.3 %; Eosinophils # (A) 0.07 X 10*3/uL (0.04-0.35); Eosinophils % (A) 0.8 %; HCT 41.6 % (39.6-50.0); HGB 13.8 g/dL (13.0-17.0); Immature Grans, Automated 0.7 %; Lymphocytes # (A) 0.97 X 10*3/uL (0.90-5.00); Lymphocytes % (A) 10.8 %; MCH 30.2 pg (27.0-32.0); MCHC 33.2 g/dL (32.0-37.0); Mean Platelet Volume 9.7 fL (9.5-12.2); NRBC Per 100 WBC 0 /100 WBCS (0.0-0.0); Neutrophils # (A) 6.97 X 10*3/uL (1.80-7.70); Neutrophils % (A) 77.4 %; Platelet Count 204 X 10*3/uL (140-440); RBC 4.57 X 10*6/uL (4.40-5.60); RDW 12.3 % (11.5-14.5)
--- NOTE | 2022-06-07 09:36 | P.DS ---
Providers Date of admission: 06/06/22 08:42 Expected date of discharge: 06/07/22 Attending physician: Geoffrey Pineda Consults: 06/04/22 16:51 Consult Physician Routine Consulting Provider: Deshawn Curtis Consult Reason/Comments: Medical management Do you want consulting provider notified?: Yes Primary care physician: [facility] Course: Date of admission: 06/04/2022 Date of discharge: 06/07/2022 Admission diagnosis: Right knee osteoarthritis Discharge diagnosis: Same Attending physician: Dr. Pineda Surgical procedures: Right total knee arthroplasty Brief history: Patient is a 61-year-old male with a history of progressive primary right knee osteorthritis. At this point patient has failed conservative treatment measures and has opted to proceed with a elective right total knee arthroplasty. Hospital course: Details of patient's surgery can be found in operative report. Patient tolerated the procedure well and was subsequently transported to orthopedic floor. Patient's orthopeidc and medical care was provided daily. Patient had daily laboratory tests performed for evaluation of overall blood counts. Patient had daily physical therapy to include strengthening range of motion as well as education with walker ambulation. Patient was treated with aspirin for their postoperative DVT prophylaxis during their inpatient stay. Patient was noted to have a relatively uneventful postoperative course. Patient reported satisfactory pain control with oral pain medications by postoperative day 1. Patient showed satisfactory progress with physical therapy. Patient moved steadily through the program and had no difficulty meeting the goals by postoperative day 1. Given patient's otherwise satisfactory course and having met physical therapy goals, plan is to discharge patient home with health services on postoperative day 1. Discharge condition/disposition: Patient will be discharged home with health services in stable condition. Discharge medications: Instructions are given on resumption of patient's normal daily medications per primary care recommendation, in addition patient will be prescribed Mifflin; Vistaril; Colace; aspirin 81 mg twice a day 30 days. Orthopedic Discharge Instructions: 1. Wound care and infection precautions, keep incision dry and covered while showering, no lotions, creams, moisturizers. No soaking, pools, hot tubs. Do not scrub over incision. 2. Weight-bear as tolerated with walker / cane until follow-up. 3. Ice and elevate when necessary. Do not exceed 20 minutes per hour with ice pack. 4. Utilize compression sleeve until seen at first follow up appointment. 5. Pain meds and anticoagulants per prescription. 6. Pain medication has potential to cause constipation. Increase oral fluid and fiber intake. Contact primary care provider if you have not had a bowel movement within 48 hours after discharge. 7. No anti-inflammatory medication until discussed at first post operative visit, this including Motrin, Aleve, Mobic, Diclofenac. 8. Follow up in office at 2 weeks postop with Hardeep Brush PA-C / Fili Mcaias PA-C 9. Follow up with your primary care doctor 7-10 days after discharge. 10. Contact [facility] with any questions, . Keep incision clean, dry, intact. While showering, cover silver foam dressing with Saran wrap. Silver foam dressing may be removed on 06/11/2022. Once dressing is removed, may shower directly over incision. Medications: Mifflin 10 miles/325 mg; aspirin 81 mg twice a day 30 days; Vistaril 25 mg; Colace Assessment: Right knee osteoarthritis Procedures: Right total knee arthroplasty Patient Condition at Discharge: Good Plan - Discharge Summary Discharge Rx Participant: Yes New Discharge Prescriptions: New hydrOXYzine pamoate [Vistaril] 25 mg PO Q6HR #30 capsule HYDROcodone/APAP 10-325MG [Mifflin 10-325] 1 - 2 tab PO Q6HR PRN #32 tab PRN Reason: Pain Docusate [Colace] 100 mg PO DAILY #30 capsule No Action metFORMIN HCL [Glucophage] 1,000 mg PO BID glyBURIDE [Diabeta] 5 mg PO BID Multivitamin [Multivitamins Adult Gummies] 1 tab PO DAILY Aspirin 81 mg PO DAILY Simvastatin [Zocor] 40 mg PO HS Empagliflozin [Jardiance] 25 mg PO DAILY Metoprolol Tartrate [Lopressor] 25 mg PO BID Semaglutide [Rybelsus] 7 mg PO AC-BRKFST lisinopriL [Zestril] 20 mg PO DAILY Discharge Medication List metFORMIN HCL [Glucophage] 1,000 mg PO BID 08/18/14 [History] glyBURIDE [Diabeta] 5 mg PO BID 06/07/15 [History] Aspirin 81 mg PO DAILY 09/02/18 [History] Multivitamin [Multivitamins Adult Gummies] 1 tab PO DAILY 09/02/18 [History] Simvastatin [Zocor] 40 mg PO HS 09/02/18 [History] Empagliflozin [Jardiance] 25 mg PO DAILY 09/23/20 [History] Metoprolol Tartrate [Lopressor] 25 mg PO BID 09/23/20 [History] Semaglutide [Rybelsus] 7 mg PO AC-BRKFST 09/23/20 [History] lisinopriL [Zestril] 20 mg PO DAILY 05/30/22 [History] Docusate [Colace] 100 mg PO DAILY #30 capsule 06/07/22 [Rx] HYDROcodone/APAP 10-325MG [Mifflin 10-325] 1 - 2 tab PO Q6HR PRN #32 tab 06/07/22 [Rx] hydrOXYzine pamoate [Vistaril] 25 mg PO Q6HR #30 capsule 06/07/22 [Rx] Follow up Appointment(s)/Referral(s): [facility],Equipment [NON-STAFF] - As Needed (Call [facility] once home to arrange delivery of the Continuous Passive Motion (CPM) machine. ) Colt Crum MD [Primary Care Provider] - 1 Week Geoffrey Pineda DO [Doctor of Osteopathic Medicine] - 06/20/22 2:20 pm [facility], [NON-STAFF] - 1-2 Days ([facility] will call you to schedule your in home nursing and physical therapy visits. ) Activity/Diet/Wound Care/Special Instructions: Orthopedic Discharge Instructions: 1. Wound care and infection precautions, keep incision dry and covered while showering, no lotions, creams, moisturizers. No soaking, pools, hot tubs. Do not scrub over incision. 2. Weight-bear as tolerated with walker / cane until follow-up. 3. Ice and elevate when necessary. Do not exceed 20 minutes per hour with ice pack. 4. Utilize compression sleeve until seen at first follow up appointment. 5. Pain meds and anticoagulants per prescription. 6. Pain medication has potential to cause constipation. Increase oral fluid and fiber intake. Contact primary care provider if you have not had a bowel movement within 48 hours after discharge. 7. No anti-inflammatory medication until discussed at first post operative visit, this including Motrin, Aleve, Mobic, Diclofenac. 8. Follow up in office at 2 weeks postop with Hardeep Brush PA-C / Fili Macias PA-C 9. Follow up with your primary care doctor 7-10 days after discharge. 10. Contact [facility] with any questions, . Keep incision clean, dry, intact. While showering, cover silver foam dressing with Saran wrap. Silver foam dressing may be removed on 06/11/2022. Once dressing is removed, may shower directly over incision. Medications: Mifflin 10 miles/325 mg; aspirin 81 mg twice a day 30 days; Vistaril 25 mg; Colace Discharge Disposition: HOME WITH HOME HEALTH SERVICES
[2022-06-07 09:39] VITALS: BP 187/94; PULSE 113; TEMP 98.6
--- NOTE | 2022-06-07 09:40 | P.PN ---
Subjective Progress Note Date: 06/07/22 Principal diagnosis: Right knee osteoarthritis Patient was seen this morning walking back to bed using walker with assistance at bedside. Patient was ambulating with walker and was bearing partial weight to RLE. Patient currently rates his pain as 6/10. Patient says he does have a walker for home. Patient says he did get up with therapy yesterday morning and felt that he did better. Patient says he did have his left knee replaced a few years ago and did stay in the hospital for several days before going home. Patient says he normally does not take any pain medication at home. Patient has urinated since surgery. Patient has not had bowel movement yet, however, patiluz maria t says he has been passing gas. Patient denies chest pain, fever, shortness breath, nausea, vomiting, change in vision, loss of bowel/bladder control. Objective - Vital Signs Vital signs: Vital Signs Temp 98.2 F 06/07/22 02:00 Pulse 96 06/07/22 02:00 Resp 17 06/07/22 02:00 BP 154/78 06/07/22 02:00 Pulse Ox 95 06/07/22 07:52 FiO2 Intake & Output 06/06/22 06/07/22 06/07/22 18:59 06:59 18:59 Output Total 1120 Balance -1120 Output: Urine 1120 Other: Voiding Method Toilet Urinal # Voids 3 - Exam Right knee: Incision is clean, dry, and intact. The silver foam dressing is in good condition. There is minimal soft tissue swelling and ecchymosis surrounding the medial and lateral aspects of the incision. Calf is soft, no tenderness with palpation. Plantar flexion, dorsiflexion, EHL, FHL are intact. Sensory exam to light touch throughout the extremity is intact, dorsal pedis pulses 2+. - Labs CBC & Chem 7: 06/07/22 06:29 06/04/22 13:58 Labs: Abnormal Lab Results - Last 24 Hours (Table) 06/06/22 06/06/22 06/06/22 Range/Units 11:37 16:51 22:38 Immature Gran # (0.00-0.04) X 10*3/uL POC Glucose (mg/dL) 117 H 119 H 138 H (70-110) mg/dL 06/07/22 06/07/22 Range/Units 06:19 06:29 Immature Gran # 0.06 H (0.00-0.04) X 10*3/uL POC Glucose (mg/dL) 138 H (70-110) mg/dL Assessment and Plan Assessment: Right knee osteoarthritis - Postoperative day 3 status post right total knee arthroplasty Plan: 1. Right knee osteoarthritis - right total knee arthroplasty performed 06/04/2022. Patient stable at bedside this morning. Plan discharge home with health services today. Patient does have walker for home. 2. Appreciate medical management 3. Pain management - - Somers; tramadol; Dilaudid 4. DVT prophylaxis - Lovenox; has Aspirin at home -> to take aspirin 81 mg BID x 30 days 5. GI prophylaxis - senna; colace once home 6. PT/OT - weightbearing as tolerated with walker 7. Encourage incentive spirometer use 8. Discharge planning - home with health services today Time with Patient: Less than 30
[2022-06-07 11:50] LABS: Glucose,Whole Blood 149 mg/dL (70-110)
--- NOTE | 2022-06-08 15:17 | P.PN ---
Subjective Progress Note Date: 06/07/22 - Reason for Consult Consult date: 06/05/22 Medical management, postop right knee arthroplasty - History of Present Illness This is a 61-year-old male who was recently admitted under orthopedic services for right knee arthroplasty, postop day #1. Patient follows with Dr. Colt Crum his primary care provider with a past medical history of diabetes mellitus, hyperlipidemia, hypertension, osteoarthritis, past history of pulmonary embolisms. Patient denies ever using tobacco denies alcohol or illicit drug use. Patient reports he had bilateral pulmonary embolisms back in 2009 and was on anticoagulation been although is not on any form of anticoagulation at this time. Patient does have history of diabetes and takes oral diabetic agents although will hold for now and continue sliding scale and Accu-Cheks before meals and at bedtime. Patient is having moderate to severe pain that is uncontrolled and staying overnight for close observation for pain management. Patient is currently maintained on IV Dilaudid along with Witter and encourage the patient to avoid IV narcotics as much as possible. Patient is tolerating diet with no reports of nausea or vomiting and will decrease the dose of IV lactated Ringer's. Patient reports he did not have very much sleep last night due to pain will add a low-dose as needed sleep medication. Follow-up knee x-ray with Dr. Larisa Miguel showed intact hardware with appropriate alignment and no fractures identified. Encouraged the patient to increase activity as tolerated and continue working with physical therapy. Patient with a incentive spirometer at the bedside encouraged to continue using at least 10 times every hour while awake and also instructed him how to properly use the device. WBC mildly elevated post surgery most likely reactive this patient is afebrile denies chest pain or shortness of breath. 06/06/2022 Patient is seen this morning working with physical therapy and did well but pain remains unmanaged. Patient is reporting 10/10 on the pain scale. Per RN pain pump was adjusted as well with no relief. Patient is afebrile and denies chest pain or shortness of breath. Denies nausea or vomiting and tolerating diet. Recommend accuchecks achs and sliding scale as needed. Reports to passing gas with no bowel movement as of yet. Using incentive spirometer at the bedside. 06/07/2022 Patient is seen in follow-up today and working with physical therapy and plan is for discharge home today. Patient is reporting continued pain of the right knee and medications have been adjusted. Patient did have an epidural subcutaneous pump which is being removed as it is empty. Patient will need close outpatient follow-up and pain management in the outpatient setting with orthopedics. All medications have been resumed and patient also encouraged to follow-up with primary care provider on discharge. Patient is afebrile denies chest pain, shortness of breath, or palpitations. She is tolerating diet with no reports of nausea or vomiting noted. Review of systems: Constitutional: No reports of fatigue, fever, or chills Cardiovascular: No reports of chest pain or palpitations Respiratory: No reports of shortness of breath or cough GI: No reports of nausea, vomiting, or diarrhea : No reports of dysuria or retention Neurovascular: No reports of weakness or numbness, reports severe right knee pain All medications have been reviewed PHYSICAL EXAMINATION: GENERAL: The patient is alert and oriented x4, Well developed, well nourished. Obese. HEENT: Pupils are round and equally reacting to light. EOMI. no scleral icterus. No conjunctival pallor. Normocephalic, atraumatic. No pharyngeal erythema. No thyromegaly. CARDIOVASCULAR: S1 and S2 muffled PULMONARY: diminished breath sounds bilaterally with no wheezing or rhonchi noted. ABDOMEN: soft. Nontender on exam. non-distended, normoactive bowel sounds. No palpable organomegaly. MUSCULOSKELETAL: No joint swelling or deformity. EXTREMITIES: No cyanosis, clubbing, or pedal edema. Right knee surgical site is dry and intact with no surrounding erythema or swelling noted. NEUROLOGICAL: Gross neurological examination did not reveal any focal deficits. SKIN: No rashes. Assessment: Status post right total knee arthroplasty, postop day 3 Mild leukocytosis, most likely reactive secondary to above no signs of infection as patient is afebrile denies shortness of breath or cough or dysuria Diabetes mellitus, type II Hyperlipidemia history Hypertension history History of pulmonary embolisms in the past not on anticoagulation Obesity with a BMI of 36.0 GI prophylaxis DVT prophylaxis Full code Plan: Recommend to continue with current medications and management per orthopedic services. Patient working with PT/OT therapy and did well although continued with pain. Pain management per primary service. Recommend to continue sliding scale and Accu-Cheks before meals and at bedtime. Patient does have incentive spirometer and recommended using at least 10 times every hour while awake. Other home medications have been resumed as blood pressure is elevated. We will continue to monitor with orthopedics during hospitalization. Pain management and DVT prophylaxis per orthopedics. Thank you kindly for this consultation. Patient reports to being discharged this afternoon. The impression and plan of care has been dictated by Shraddha Marin, nurse practitioner as directed. Dr. Grabiel MCCLENDON I have performed a history and examination and MDM of this patient, discussed the same with the dictator, and agree with the dictator's assessment and plan as written ,documented as a scribe. Based on total visit time, I have performed more than 50% of the visit. Any additional findings or plans will be noted. Objective - Vital Signs Vital signs: Vital Signs Temp 98.6 F 06/07/22 08:00 Pulse 113 H 06/07/22 08:30 Resp 17 06/07/22 08:00 BP 187/94 06/07/22 08:00 Pulse Ox 93 L 06/07/22 08:00 FiO2 - Labs CBC & Chem 7: 06/07/22 06:29 06/04/22 13:58
== END 2022-06-07 13:24 | disposition home health service (06) ==
LOC: OR 13:12 → 4SSUR 17:53 → OR 06-06 08:16 → 4SSUR 06-06 08:42 → INTOOBSV 06-06 08:43 → OBSVTOIN 06-06 08:43
PROVIDERS: ADMIT Orthopaedic Surgery; ATTEND Orthopaedic Surgery
DX: M17.11 Unilateral primary osteoarthritis, right knee (principal); E11.9 Type 2 diabetes mellitus without complications; I10 Essential (primary) hypertension; E78.5 Hyperlipidemia, unspecified; E66.9 Obesity, unspecified; Z68.36 Body mass index [BMI] 36.0-36.9, adult; D72.829 Elevated white blood cell count, unspecified; I25.10 Atherosclerotic heart disease of native coronary artery without angina pectoris; Z87.01 Personal history of pneumonia (recurrent); Z87.442 Personal history of urinary calculi; Z79.82 Long term (current) use of aspirin; Z79.84 Long term (current) use of oral hypoglycemic drugs; Z71.9 Counseling, unspecified; Z86.711 Personal history of pulmonary embolism; Z96.652 Presence of left artificial knee joint; Z79.899 Other long term (current) drug therapy; Z88.5 Allergy status to narcotic agent; Z88.6 Allergy status to analgesic agent; Z80.9 Family history of malignant neoplasm, unspecified; Z82.49 Family history of ischemic heart disease and other diseases of the circulatory system
CPT/HCPCS: 94760 ×2; 97116 ×2; 97161; 64999; 64448; 76942; 80048; 85025 ×3; 88300; 73560; 27447; G0378 ×2; C1776; C1713 ×2; C1751; J2250; J2270; J1100; J0690 ×2; J2405; J3010; J1650 ×3; J1170 ×2; J2795 ×2; J2704

== ENCOUNTER 2024-04-27 04:14 | Emergency (ER) | payer OTHER ==
[2024-04-27 04:18] VITALS: TEMP 97.4
[2024-04-27] MEDS: ONDANSETRON 4 MG/2 ML VIAL IVP STA (04:34)
[2024-04-27] MEDS: SODIUM CHLORIDE 0.9% 500 ML 500 ML IV STA (04:41)
[2024-04-27 05:05] LABS: Basophils # (A) 0.1 k/uL (0-0.2); Basophils % (A) 1 %; Eosinophils # (A) 0.2 k/uL (0-0.7); Eosinophils % (A) 3 %; HCT 48.5 % (39.0-53.0); HGB 15.6 gm/dL (13.0-17.5); Lymphocytes # (A) 1.7 k/uL (1.0-4.8); Lymphocytes % (A) 24 %; MCH 29.1 pg (25.0-35.0); MCHC 32.2 g/dL (31.0-37.0); MCV 90.2 fL (80.0-100.0); Mean Platelet Volume 7.3; Monocytes # (A) 0.6 k/uL (0-1.0); Monocytes % (A) 8 %; Neutrophils # (A) 4.4 k/uL (1.3-7.7); Neutrophils % (A) 62 %; Platelet Count 219 k/uL (150-450); RBC 5.38 m/uL (4.30-5.90); RDW 12.9 % (11.5-15.5); WBC 7.2 k/uL (3.8-10.6)
[2024-04-27 05:18] LABS: ALT 30 U/L (4-49); AST 27 U/L (17-59); African American GFR (CKD) >90 (>60 ml/min/1.73 sqM); Albumin 4.2 g/dL (3.5-5.0); Alkaline Phosphatase 54 U/L (38-126); Anion Gap 9 mmol/L; Blood Urea Nitrogen 20 mg/dL (9-20); Calcium 9.3 mg/dL (8.4-10.2); Carbon Dioxide 25 mmol/L (22-30); Chloride 106 mmol/L (98-107); Glucose 199 mg/dL (74-99); Non-African American GFR(CKD) 81 (>60 ml/min/1.73 sqM); Potassium 3.9 mmol/L (3.5-5.1); Sodium 140 mmol/L (137-145); Total Bilirubin 0.5 mg/dL (0.2-1.3); Total Protein 6.7 g/dL (6.3-8.2)
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
[2024-04-27] MEDS: MECLIZINE 12.5 MG TAB PO STA (05:27)
--- NOTE | 2024-04-27 07:14 | CT ---
EXAM: CT Head Without Intravenous Contrast CLINICAL HISTORY: ITS.REASON CT Reason: vertigo TECHNIQUE: Axial computed tomography images of the head/brain without intravenous contrast. CTDI is 48.8 mGy and DLP is 1231 mGy-cm. This CT exam was performed using one or more of the following dose reduction techniques: automated exposure control, adjustment of the mA and/or kV according to patient size, and/or use of iterative reconstruction technique. COMPARISON: CT Head dated 09/23/2020 FINDINGS: Brain: Unremarkable. No hemorrhage. No significant white matter disease. No edema. Ventricles: Unremarkable. No ventriculomegaly. Bones/joints: Unremarkable. No acute fracture. Soft tissues: Unremarkable. Sinuses: Unremarkable as visualized. No acute sinusitis. Mastoid air cells: Unremarkable as visualized. No mastoid effusion. IMPRESSION: No evidence of acute intracranial abnormality.
--- NOTE | 2024-04-27 07:19 | CT ---
EXAM: CT Angiography Head and Neck With Intravenous Contrast CLINICAL HISTORY: ITS.REASON CT Reason: vertigo TECHNIQUE: [place]/head and neck CT angiography protocol performed with intravenous contrast. CTDI is 14.4 mGy and DLP is 331.75 mGy-cm. This CT exam was performed using one or more of the following dose reduction techniques: automated exposure control, adjustment of the mA and/or kV according to patient size, and/or use of iterative reconstruction technique. MIP reconstructed images were created and reviewed. COMPARISON: Noncontrast CT head today FINDINGS: HEAD: Right anterior cerebral artery: Unremarkable. No occlusion or significant stenosis. Anterior communicating artery is present. No aneurysm. Right middle cerebral artery: Unremarkable. No occlusion or significant stenosis. No aneurysm. Right posterior cerebral artery: Unremarkable. No occlusion or significant stenosis. No aneurysm. Right intracranial internal carotid artery: Unremarkable. No significant stenosis. No dissection or occlusion. Right intracranial vertebral artery: Unremarkable. No significant stenosis. No dissection or occlusion. Left anterior cerebral artery: Unremarkable. No occlusion or significant stenosis. No aneurysm. Left middle cerebral artery: Unremarkable. No occlusion or significant stenosis. No aneurysm. Left posterior cerebral artery: Unremarkable. No occlusion or significant stenosis. No aneurysm. Left intracranial internal carotid artery: Unremarkable. No significant stenosis. No dissection or occlusion. Left intracranial vertebral artery: Unremarkable. No significant stenosis. No dissection or occlusion. Basilar artery: Unremarkable. No occlusion or significant stenosis. No aneurysm. Other vasculature: No vascular malformation. NECK: Right common carotid artery: Unremarkable. No significant stenosis. No dissection or occlusion. Right extracranial internal carotid artery: Atherosclerotic calcifications of the proximal internal carotid artery. No significant stenosis. No dissection or occlusion. Right external carotid artery: Unremarkable. No occlusion. Right extracranial vertebral artery: Unremarkable. No significant stenosis. No dissection or occlusion. Left common carotid artery: Unremarkable. No significant stenosis. No dissection or occlusion. Left extracranial internal carotid artery: Atherosclerotic calcifications of the proximal internal carotid artery. No significant stenosis. No dissection or occlusion. Left external carotid artery: Unremarkable. No occlusion. Left extracranial vertebral artery: Unremarkable. No significant stenosis. No dissection or occlusion. Lung apices: Unremarkable as visualized. HEAD and NECK: Bones/joints: Unremarkable. No discrete lytic or blastic abnormalities. Soft tissues: Unremarkable. CAROTID STENOSIS REFERENCE USING NASCET CRITERIA: % ICA stenosis = (1 - narrowest ICA diameter/diameter of distal cervical ICA) x 100. Mild - <50% stenosis. Moderate - 50-69% stenosis. Severe - 70-94% stenosis. Near occlusion - 95-99% stenosis. Occluded - 100% stenosis. IMPRESSION: Negative CTA carotid and CTA brain.
[2024-04-27 07:47] VITALS: BP 152/91; PULSE 80; RESP 18
== END 2024-04-27 07:47 | disposition home or self-care (01) ==
LOC: EC 04:14
CPT/HCPCS: 36415; 70450; 70496; 70498; 80053; 84484; 85025; 93005; 96374; 96375; 99285